=== PATIENT | male | born 1950 ===

== ENCOUNTER 2024-08-16 18:09 | Inpatient (IN) | payer MEDICARE, SELFPAY ==
[2024-08-16] VITALS (16 sets, daily range): BP systolic 107–142; BP diastolic 68–97; BMI 28.2
[2024-08-16 15:14] LABS: % Basophils 0.4 % (0-2); % Eosinophils 0.7 % (0-6); % Immature Granulocytes 0.4 % (0-0.5); % Lymphocytes 15.8 % (20.5-51.1); % Monocytes 7.2 % (1.7-9.3); % Neutrophils 75.5 % (42.2-75.2); Absolute Lymphocytes 0.9 10^3/uL (1.2-3.4); Absolute Monocytes 0.4 10^3/uL (0.1-0.6); Absolute Neutrophils 4.2 10^3/uL (1.4-6.5); Hematocrit 37.6 % (37.0-47.0); Mean Corp Hgb Conc. 34.6 g/dL (33.0-37.0); Mean Corpuscular Hgb 30.2 pg (27.0-31.0); Mean Corpuscular Volume 87.4 fL (81.0-99.0); Mean Platelet Volume 11.3 fL (7.4-10.4); Nucleated Red Blood Cells % 0 %; Platelet Count 215 10^3/uL (130-400); Red Cell Dist. Width 12.4 % (11.5-14.5); White Blood Cell Count 5.5 10^3/uL (4.8-10.8)
--- NOTE | 2024-08-16 15:26 | EDRN ---
Pt tore off ID band and left triage room for room #37 w/ 2 RNs and 2 security guards.
[2024-08-16 15:30] LABS: ALT (SGPT) 19 U/L (0-35); AST (SGOT) 25 U/L (14-36); Albumin 3.9 g/dl (3.5-5.0); Alkaline Phosphatase 73 U/L (38-126); Blood Urea Nitrogen 18 mg/dl (7-17); Calcium 9.2 mg/dl (8.4-10.2); Carbon Dioxide 23 mmol/L (22-30); Chloride 101 mmol/L (98-107); Glucose 139 mg/dl (70-99); Potassium 4.5 mmol/L (3.5-5.1); Sodium 134 mmol/L (135-145); Total Protein 6.7 g/dl (6.3-8.2); eGFR > 60.00
[2024-08-16 15:44] LABS: NT-proBNP 4550 pg/ml
--- NOTE | 2024-08-16 16:45 | ED.GENMED ---
History of Present Illness
<Amrita Ruiz NP - Last Filed: 08/16/24 22:37>
General
Chief Complaint: Breathing Problem
Source: patient
Exam Limitations: none
Time Seen by Provider: 08/16/24 15:48
Nursing documentation reviewed up to this point in time: agreed with
History of Present Illness
History of Present Illness:
Patient to ED with complaint of increasing CONNORS. Symptoms started a few days ago and continue to worsen. This AM he sat up in bed and noted left chest tightness. Tightness resolved in 1-2 minutes and has not returned. Brought to ED by spouse for
eval. No prior history of same.
Past History
<Amrita Ruiz NP - Last Filed: 08/16/24 22:37>
Past History
ED Past Medical History: CAD and Hypercholesterolemia
ED Past Surgical History: Cardiac (Bypass 1995)
Social History
Tobacco: Non-smoker
Review of Systems
<Amrita Ruiz NP - Last Filed: 08/16/24 22:37>
Review of Systems
Allergies reviewed?: Yes
All Other Systems: ROS reviewed and negative except as documented in HPI and ROS
Constitutional: Reports no symptoms
EENT: Reports no symptoms
Respiratory: Reports trouble breathing
Cardiac: Reports chest pain (Chest tightness this AM)
ABD/GI: Reports no symptoms
Musculoskeletal: Reports edema (+1 edema LLE, trace RLE)
Skin: Reports no symptoms
Neurological: Reports weakness
Psychiatric: Reports no symptoms
Phy Exam
<Amrita Ruiz NP - Last Filed: 08/16/24 22:37>
General Physical Exam
General Presentation: mild distress
General age: appears stated age
General Skin: warm and dry
General Habitus: normal
General Mental: alert
Cardiovascular Exam
Cardiovascular Exam: tachycardia
Pulmonary Exam
Pulmonary Exam: no respiratory distress and chest non tender
Breath Sounds: Crackles: left lower and right lower
Gastrointestinal Exam
Gastrointestinal Exam: non tender and soft
Musculoskeletal Exam
Musculoskeletal Exam: edema (+1LLE, trace RLE) and neuro vasc intact
Psychiatric Exam
Psychiatric Exam: normal mood/affect
Scores
<Amrita Ruiz NP - Last Filed: 08/16/24 22:37>
Heart Failure Risk
Heart Failure Risk Score: Yes
History of Stroke or TIA: No
History of intubation for respiratory distress: No
Heart rate on ED arrival >/= 110: Yes
SaO2 <90% on arrival on room air: No
HR >/=110 during 3min walk test (or too ill to perform test): Yes
ECG has acute ischemic changes: No
Urea >/=12mmol/L (BUN 33.6mg/dL): No
Serum CO2>/=35mmol/L: No
Troponin I or T elevated to FL Level (0.4mg/dL): Yes
NT-proBNP >/=5,000ng/L (5,000pg/ml): No
HF Risk Score: 4
Admission Status: HIGH RISK 26.1% Consider SNF treatment or admission to hospital
Course
<Amrita Ruiz [employer]OTOTYPE MODEL MAKER - Last Filed: 08/16/24 22:37>
Orders/Labs/Results
Orders:
Orders
08/16/24 14:42
Electrocardiogram (*1) Urgent
Reason for Study: Chest Pain
EKG- Treatment ONCE
08/16/24 14:48
CR Chest - 2 Views Urgent
Comment:
Reason For Exam: SOB
08/16/24 Dinner
Cholesterol Lowering
Cholesterol Lowering: Sodium, 2 Gram
08/16/24 15:06
Complete Blood Count/With Diff Urgent
Comprehensive Metabolic Panel Urgent
NT-proBNP Urgent
Troponin I Urgent
08/16/24 16:44
Furosemide [Lasix] 40 mg IV NOW STA
Nitroglycerin Ointment [Nitro-Bid] 1 inch TOPICAL NOW STA
08/16/24 17:26
Admit/Transfer Patient As Directed
Co-Sign Provider:
Level of Care: Inpatient admission
Assign to:: IVU
Physician / Group: fabiana
Diagnosis: heart failure
Reason for Hospitalization: chf,
Expected length of stay greater than two midnights?: Yes
ELOS- Estimated Length of Stay in days: 2
I certify the patient meets the requirements for IP care: Yes
08/16/24 17:28
ECG [Electrocardiogram (*1)] Urgent
Reason for Study: Abnormal EKG
PRN Pain Medication Management As Directed
May give lesser potent ordered pain med per pt: Yes
preference::
Protocol:: Medication orders for pain may be administered in a
manner that supports deferring to patient preference
when the pt is:
- Requesting an ordered lesser potent pain medication.
Least to most potent pain medications are defined
as: acetaminophen < NSAID < tramadol < opioids
(morphine, oxycodone, hydromorphone).
- Requesting a lesser dose of the same medication IF
ORDERED.
- Requesting a less intrusive route of administration
if both routes are prescribed by the provider (PO <
IV).
08/16/24 17:29
Code Status As Directed
Resuscitation Status: Full Code
08/16/24 18:00
Amiodarone [Cordarone] 900 mg DEXTROSE 5% PVC-free BAG [D5W PVC-free BAG] 500 ml IV PER PROTOCOL
Initial Dose in mg/min:: 1
Duration of initial dose (hours):: 6
Subsequent dose in mg/min:: 0.5
Duration of subsequent dose (hours):: 18
Maximum dose in mg/min:: 1
Hold and notify provider if:: Heart rate < 60 BPM or SBP < 90 mmHg or MAP < 60 mmHg
08/16/24 18:01
PRN Pain Medication Management As Directed
May give lesser potent ordered pain med per pt: Yes
preference::
Protocol:: Medication orders for pain may be administered in a
manner that supports deferring to patient preference
when the pt is:
- Requesting an ordered lesser potent pain medication.
Least to most potent pain medications are defined
as: acetaminophen < NSAID < tramadol < opioids
(morphine, oxycodone, hydromorphone).
- Requesting a lesser dose of the same medication IF
ORDERED.
- Requesting a less intrusive route of administration
if both routes are prescribed by the provider (PO <
IV).
08/16/24 19:02
Echo 2D MMode Color/Doppler Routine
Reason for Study: chf
CARDIOLOGY CONSULT Routine
Consulting Provider: Horacio Monroy
Was physician already notified: Yes
Activity As Directed
Activity Level: As Tolerated
I/O [Intake/ Output] As Directed
Frequency: q12h
Vital Signs As Directed
Frequency: Per unit guidelines
Weight As Directed
Frequency: Daily
DX Deep Vein Thrombosis Video Routine
08/16/24 20:00
Heparin 5,000 units SC Q12
08/16/24 20:11
Troponin I Q6H
08/17/24 01:02
Troponin I Q6H
08/17/24 06:00
Complete Blood Count/With Diff IN AM
Comprehensive Metabolic Panel IN AM
08/17/24 07:02
Troponin I Q6H
08/17/24 08:00
Aspirin Low Dose EC [Aspir Low (Enteric Coated)] 40.5 mg PO DAILY
Atorvastatin [Lipitor] 40 mg PO DAILY
Clopidogrel Bisulfate [Plavix] 75 mg PO DAILY
Furosemide [Lasix] 40 mg IV DAILY
08/17/24 13:02
Troponin I Q6H
08/18/24 11:00
DC Protocol for Telemetry ONCE
Abnormal Lab Results
08/16/24
15:06
MPV 11.3 H fL
(7.4-10.4)
Absolute Lymphs (auto) 0.9 L 10^3/uL
(1.2-3.4)
Neutrophils % 75.5 H %
(42.2-75.2)
Lymphocytes % 15.8 L %
(20.5-51.1)
Sodium 134 L mmol/L
(135-145)
BUN 18 H mg/dl
(7-17)
Glucose 139 H mg/dl
(70-99)
Troponin I 0.170 H* ng/ml
08/16/24 15:06
08/16/24 15:06
Vital Signs
Initial and Last Documented VS:
Initial Vital Signs
Temp Pulse Resp BP Pulse Ox
98.2 F 121 20 127/81 99
08/16/24 14:44 08/16/24 14:44 08/16/24 14:44 08/16/24 14:44 08/16/24 14:44
Last Documented Vital Signs
Temp Pulse Resp BP Pulse Ox
98.8 F 99 20 107/74 100
08/16/24 20:43 08/16/24 22:28 08/16/24 20:43 08/16/24 22:28 08/16/24 20:43
Javilt;Humza Sarmiento DO - Last Filed: 08/16/24 20:16>
Orders/Labs/Results
Orders:
Orders
08/16/24 14:42
Electrocardiogram (*1) Urgent
Reason for Study: Chest Pain
EKG- Treatment ONCE
08/16/24 14:48
CR Chest - 2 Views Urgent
Comment:
Reason For Exam: SOB
08/16/24 Dinner
Cholesterol Lowering
Cholesterol Lowering: Sodium, 2 Gram
08/16/24 15:06
Complete Blood Count/With Diff Urgent
Comprehensive Metabolic Panel Urgent
NT-proBNP Urgent
Troponin I Urgent
08/16/24 16:44
Furosemide [Lasix] 40 mg IV NOW STA
Nitroglycerin Ointment [Nitro-Bid] 1 inch TOPICAL NOW STA
08/16/24 17:26
Admit/Transfer Patient As Directed
Co-Sign Provider:
Level of Care: Inpatient admission
Assign to:: IVU
Physician / Group: fabiana
Diagnosis: heart failure
Reason for Hospitalization: chf,
Expected length of stay greater than two midnights?: Yes
ELOS- Estimated Length of Stay in days: 2
I certify the patient meets the requirements for IP care: Yes
08/16/24 17:28
ECG [Electrocardiogram (*1)] Urgent
Reason for Study: Abnormal EKG
PRN Pain Medication Management As Directed
May give lesser potent ordered pain med per pt: Yes
preference::
Protocol:: Medication orders for pain may be administered in a
manner that supports deferring to patient preference
when the pt is:
- Requesting an ordered lesser potent pain medication.
Least to most potent pain medications are defined
as: acetaminophen < NSAID < tramadol < opioids
(morphine, oxycodone, hydromorphone).
- Requesting a lesser dose of the same medication IF
ORDERED.
- Requesting a less intrusive route of administration
if both routes are prescribed by the provider (PO <
IV).
08/16/24 17:29
Code Status As Directed
Resuscitation Status: Full Code
08/16/24 18:00
Amiodarone [Cordarone] 900 mg DEXTROSE 5% PVC-free BAG [D5W PVC-free BAG] 500 ml IV PER PROTOCOL
Initial Dose in mg/min:: 1
Duration of initial dose (hours):: 6
Subsequent dose in mg/min:: 0.5
Duration of subsequent dose (hours):: 18
Maximum dose in mg/min:: 1
Hold and notify provider if:: Heart rate < 60 BPM or SBP < 90 mmHg or MAP < 60 mmHg
08/16/24 18:01
PRN Pain Medication Management As Directed
May give lesser potent ordered pain med per pt: Yes
preference::
Protocol:: Medication orders for pain may be administered in a
manner that supports deferring to patient preference
when the pt is:
- Requesting an ordered lesser potent pain medication.
Least to most potent pain medications are defined
as: acetaminophen < NSAID < tramadol < opioids
(morphine, oxycodone, hydromorphone).
- Requesting a lesser dose of the same medication IF
ORDERED.
- Requesting a less intrusive route of administration
if both routes are prescribed by the provider (PO <
IV).
08/16/24 19:02
Echo 2D MMode Color/Doppler Routine
Reason for Study: chf
CARDIOLOGY CONSULT Routine
Consulting Provider: Horacio Monroy
Was physician already notified: Yes
Activity As Directed
Activity Level: As Tolerated
I/O [Intake/ Output] As Directed
Frequency: q12h
Vital Signs As Directed
Frequency: Per unit guidelines
Weight As Directed
Frequency: Daily
DX Deep Vein Thrombosis Video Routine
08/16/24 20:00
Heparin 5,000 units SC Q12
08/16/24 20:11
Troponin I Q6H
08/17/24 01:02
Troponin I Q6H
08/17/24 06:00
Complete Blood Count/With Diff IN AM
Comprehensive Metabolic Panel IN AM
08/17/24 07:02
Troponin I Q6H
08/17/24 08:00
Aspirin Low Dose EC [Aspir Low (Enteric Coated)] 40.5 mg PO DAILY
Atorvastatin [Lipitor] 40 mg PO DAILY
Clopidogrel Bisulfate [Plavix] 75 mg PO DAILY
Furosemide [Lasix] 40 mg IV DAILY
08/17/24 13:02
Troponin I Q6H
08/18/24 11:00
DC Protocol for Telemetry ONCE
Abnormal Lab Results
08/16/24
15:06
MPV 11.3 H fL
(7.4-10.4)
Absolute Lymphs (auto) 0.9 L 10^3/uL
(1.2-3.4)
Neutrophils % 75.5 H %
(42.2-75.2)
Lymphocytes % 15.8 L %
(20.5-51.1)
Sodium 134 L mmol/L
(135-145)
BUN 18 H mg/dl
(7-17)
Glucose 139 H mg/dl
(70-99)
Troponin I 0.170 H* ng/ml
08/16/24 15:06
08/16/24 15:06
Vital Signs
Initial and Last Documented VS:
Initial Vital Signs
Temp Pulse Resp BP Pulse Ox
98.2 F 121 20 127/81 99
08/16/24 14:44 08/16/24 14:44 08/16/24 14:44 08/16/24 14:44 08/16/24 14:44
Last Documented Vital Signs
Temp Pulse Resp BP Pulse Ox
98.8 F 99 20 107/74 100
08/16/24 20:43 08/16/24 22:28 08/16/24 20:43 08/16/24 22:28 08/16/24 20:43
<Amrita Ruiz [employer]OTOTYPE MODEL MAKER - Last Filed: 08/16/24 22:37>
*Critical Care Note
Total Time (30-74mins, 75-104mins- exclusive of procedures): Not Applicable
<Amrita Ruiz NP - Last Filed: 08/16/24 22:37>
Update Note
Update Note:
Patient to ED with worsening CONNORS. Had an episode of chest tightness this AM. PUlse ox 96% RA. Labs reviewed. BNP 4500, trop 0.17. CXR report of severe bilateral pulmonary edema. Given 40mgm IV lasix, Nitrodur 1' applied. WIll admit to
hospitalist service. Case discussed iwth dr. sarmiento who agrees with findings and plan.
ED Attending Note
<Amrita Ruiz NP - Last Filed: 08/16/24 22:37>
-
Portions of this chart may have been created with voice recognition software.� Occasional wrong word or��sound alike� substitutions may have occurred due to the inherent limitations of voice recognition software.
<Humza Sarmiento, DO - Last Filed: 08/16/24 20:16>
ED Attending Note
Patient seen and examined by attending physician: Yes
I performed the substantive portion of visit, reviewed & personally made and approve the management plan that is documented in note by myself or ELAINE.: Yes
ED Attending Note:
I agree with Amrita's note
74-year-old male presents with increasing shortness of breath over the past several days. No fever. Patient complaining of some heaviness in his chest. Patient does not monitor his weight on a regular basis. He has noted that he gets much more
short of breath with exertion. Patient does have history of bypass surgery. He does not recall being told he ever had congestive heart failure.
General: Awake, Alert, Oriented X3. Mild increased work of breathing
Vitals: unremarkable
Head: Atraumatic
Eyes: Pupils equal, EOMI
Throat: Airway intact, no exudates
Neck: Trachea midline
Lungs: Crackles bilateral bases
Heart: Regular rate, no murmurs
Abd: Soft, Nontender, No pulsatile mass
Neuro: Nonfocal
Skin: Warm, dry, no rash
Extremities: pulses equal b/l, trace edema
EKG shows sinus tachycardia left lateral branch. There is no EKG to compare to.
Labs show elevated BNP and elevated troponin at 0.17
Discussed with Amrita. Plan is to initiate IV diuretic with furosemide. Nitropaste to reduce preload. Patient is not having chest pain at this time. Cardiology consult
Discharge Plan
Departure
Patient Disposition: Admit
Date of Disposition: 08/16/24
Time of Disposition: 16:53
Presentation/result/management discussed w/ accepting MD/DO: Hospitalist
Patient with high blood pressure during this ER visit?: Yes
Condition: Fair
Covid-19: Not Applicable
Discharge Problem:
Pulmonary edema
Interventions
Interventions:
*Risk Screen - Suicide Last Done: 08/16/24 17:23
*General Assessment Last Done: 08/16/24 14:44
*Neglect/Abuse Screening Last Done: 08/16/24 17:23
*ED- Fall Risk Assessment Last Done: 08/16/24 20:47
*ED COVID-19 Vaccine History Last Done: 08/16/24 20:52
*Nursing Disposition Last Done: 08/16/24 20:47
ED- Cardiac Assessment Last Done: 08/16/24 17:23
ED- Pulmonary Assessment Last Done: 08/16/24 17:23
Discharge Date and Time
Discharge Date/Time: 08/16/24 20:48
[2024-08-16] MEDS: LASIX 40 MG IV (16:49)
[2024-08-16] MEDS: NITRO-BID 1 INCH TOPICAL (16:51)
--- NOTE | 2024-08-16 17:36 | HPS.HSE ---
Family Physician
-
Family Physician: Craig Gambino
Chief Complaint
-
shortness of breath
History of Present Illness
74-year-old male past medical history CAD status post CABG, hypercholesteremia presenting with shortness of breath on exertion and with breathing. Symptoms started a few days ago continue to worsen. He has been having some chest discomfort over
the past 3 days also with exertion. He denies any chest discomfort currently. He has increased lower extreme edema. Denies weight gain. He has some cough without fever.
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
He denies smoking. He drinks alcohol occasionally. Denies drugs.
Multiple family members in his family including brother and father with heart attacks.
Medical History
Past Medical History
Past Medical History: Reports Other (CAD)
Past Surgical History: Reports Other (CABG )
Social History
Tobacco: Non-smoker
Alcohol: Occasional
Drug: None
Family History
Family History: Not pertinent
Allergies / Home Medications
Allergies reflects when Allergies were last updated in [facility].
Home Medications with original date entered in [facility]
Allergy/Medication List:
Allergies
Allergy/AdvReac Type Severity Reaction Status Date / Time
No Known Allergies Allergy Unverified 08/16/24 14:44
Home Medications
aspirin 81 mg tablet,delayed release 40.5 mg PO DAILY 08/16/24
atorvastatin 40 mg tablet (Lipitor) 40 mg PO DAILY 08/16/24
clopidogrel 75 mg tablet (Plavix) 75 mg PO DAILY 08/16/24
Review of Systems
-
History Source: Patient
A 12 point ROS was completed and negative except as noted: Yes
Constitutional: Reports No Symptoms
EENT: Reports No Symptoms
Respiratory: Reports See HPI
Cardiac: Reports See HPI
Abdomen/GI: Reports No Symptoms
: Reports No Symptoms
Musculoskeletal: Reports No Symptoms
Skin: Reports No Symptoms
Neurological: Reports No Symptoms
Endocrine: Reports No Symptoms
Hematologic/Lymphatic: Reports No Symptoms
Psych: Reports No Symptoms
Physical Exam
Vital Signs
Vital Signs
Temp Pulse Resp BP Pulse Ox
98.2 F 110 24 123/87 99
08/16/24 14:44 08/16/24 17:15 08/16/24 17:15 08/16/24 17:00 08/16/24 14:44
Physical Exam
General: Well Developed, Well Nourished and No Apparent Distress
HEENT: NormoCephalic, Moist mucous membranes and Atraumatic
Respiratory: Clear
Cardiac: S1/S2 and Regular Rhythm; No Murmur or Rub
GI: Soft, Non Tender, Non Distended and Normal Bowel Sounds; No Organomegaly
Rectal: Deferred by Provider
Musculoskeletal: No Clubbing, No Cyanosis and No Edema
Skin: No Rash
Neuro: Nonfocal/grossly intact
Laboratory Results
-
08/16/24 15:06
08/16/24 15:06
Laboratory Results
Total Bilirubin 1.0 mg/dl (0.2-1.3) 08/16/24 15:06
AST 25 U/L (14-36) 08/16/24 15:06
ALT 19 U/L (0-35) 08/16/24 15:06
Alkaline Phosphatase 73 U/L (38-126) 08/16/24 15:06
Troponin I 0.170 ng/ml H* 08/16/24 15:06
Data Reviewed
-
Lab Data: Labs Reviewed by me
Old Records: Reviewed
Impression/Plan
-
IMPRESSION:
PLAN:
# Acute CHF exacerbation
- Chest x-ray shows severe acute cardiogenic pulm edema, small bilateral pleural effusions, 7.1 cm radiodensity posterior to the superior segment to the right lower lobe, possibly loculated pleural effusion versus pleural-based mass
- Cardiac BNP of 4500
- Check I's and O's, daily weights
- 40 IV Lasix daily
-Check echo
- Cardiology consulted
# Nonischemic myocardial injury versus NSTEMI
# History of CAD status post CABG
- EKG shows sinus tachycardia versus atrial tachycardia with heart rate of 122, left bundle branch block
- Trend troponins
-Continue aspirin, Plavix and statin
-Consider heparin drip if troponin is rising or chest pain returns
- Cardiology consulted
# Sinus tachycardia versus atrial tachycardia
- Repeat EKG pending, start Lopressor 25 twice daily if still tachycardic
Full code
DVT prophylaxis�heparin
Regular diet
--- NOTE | 2024-08-16 17:48 | CON.CAR ---
Consultation
Consultation Request
Date/Time Consultation Requested: 08/16/2024 at 1750
Date/Time Consultation Performed: 08/16/2024 at 1800
Requesting Provider: Dr Murphy
Performing Provider: Horacio Monroy
Reason for Consultation: Suspected atrial flutter with CHF
Medical History
-
History of Present Illness:
73-year-old man followed by Dr. Rd Lawson at [facility], history of CAD, CABG in 1997, prior PCI, saphenous vein graft intervention with stent x 3 in 2016, hypertension, hyperlipidemia who presented to [facility] today with
shortness of breath roughly 3 to her days and duration, with some chest discomfort in that timeframe and lower extremity edema. Details of PCI, detailed echo report not currently available.
Past Medical History
Past Medical History: Arrhythmias (History of syncope), CAD (CABG 1997, history of PCI most recently reported 3 stents to SVG in 2016) and Valvular Disease (Mild aortic stenosis, mean gradient 17 mmHg in 2021)
Past Surgical History: Cardiac (CABG x 3 1997 at [facility],)
Social History
Tobacco: Non-Smoker
Alcohol: Occasional
Drug: None
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
Living: Alone
Employment: Retired
Family History
Family History: Early CAD (Multiple family members) and CAD
Allergies / Home Medications
Allergy/AdvReac Type Severity Reaction Status Date / Time
No Known Allergies Allergy Unverified 08/16/24 14:44
�Medication �Instructions �Recorded �Confirmed �Type
aspirin 81 mg tablet,delayed 40.5 mg PO DAILY 08/16/24 08/16/24 History
release
atorvastatin 40 mg tablet (Lipitor) 40 mg PO DAILY 08/16/24 08/16/24 History
clopidogrel 75 mg tablet (Plavix) 75 mg PO DAILY 08/16/24 08/16/24 History
Review of Systems
-
All other systems: Negative unless noted
Physical Exam
Vital Signs
Temp Pulse Resp BP Pulse Ox
36.8 C 110 24 123/87 99
08/16/24 14:44 08/16/24 17:15 08/16/24 17:15 08/16/24 17:00 08/16/24 14:44
Lab Results
08/16/24 15:06
08/16/24 15:06
Troponin I 0.170 ng/ml H* 08/16/24 15:06
Aob-L-Ubkikahteqa Pept 4550 pg/ml 08/16/24 15:06
Physical Exam
General: No Apparent Distress (Reported to be uncomfortable earlier, states he is feeling better now)
HEENT: Normocephalic
Respiratory: Clear
Cardiac: Murmur (Soft aortic murmur JVD okay, no obvious carotids, exam somewhat limited)
Musculoskeletal: No Edema
Skin: Warm and Dry
Neuro: AO x 3
Psych: Calm
Impression / Plan
-
Impression:
Acute/subacute heart failure, EF unknown
CAD history of CABG 1997
History of PCI 2000, with PCI to saphenous vein graft in 2015
Hypercholesterolemia
Left bundle branch block, not present in 2023
Plan:
He presents with acute heart failure, onset roughly 3 days ago, with left bundle branch block and what was likely sinus tachycardia, though atrial tachycardia or atrial flutter not excluded. As heart rate dropped to low 100s, rhythm is clearly
sinus tachycardia.
Initially he was in significant distress, now feels better.
We will trend troponin, repeat EKG, check echo and thereafter optimize GDMT
Continue IV Lasix.
Suspect his troponin elevation is nonischemic myocardial injury from heart failure. However based on troponin, clinical course we can determine if intervention is required.
Data Reviewed
-
EKG: Tracing Personally Visualized and interpreted (ECG suspected atrial flutter with 2 1 conduction)
Radiology: Image Personally Visualized and interpreted (CHF)
Labs: Labs Reviewed by me (Hemoglobin 13, white count 5.5, troponin 0.170, proBNP 4550)
Old Records: Reviewed
[2024-08-16] MEDS: CORDARONE 518 MG IV (18:31)
[2024-08-16] MEDS: HEPARIN 5000 UNITS SC (20:09)
[2024-08-16 20:45] LABS: Troponin I 0.204 ng/ml
[2024-08-16] MEDS: LASIX 60 MG IV (22:28)
[2024-08-17] VITALS (8 sets, daily range): BP systolic 93–122; BP diastolic 65–72; BMI 27.9
--- NOTE | 2024-08-17 00:22 | PTCARENOTE ---
Rec'd pt. from ED into room 2256 AAOX3, VSS, ST with BBC (rate low 100's-110's) on the monitor. Pt. denied any CP, still having some SOB especially with activity but states it has overall improved. Crackles present bilateral bases (right > left),
rec'd on 5L O2 with pulse ox 99-100%, titrated down to 3L thus far with pulse ox maintaining high 90's. Clarified with Dr. AURORA graham gtt to remain off at this point (order discontinued) - HR maintaining 90's-low 100's at rest, sinus rhythm.
Lasix 60 mg IV x 1 given, pt. urinating without difficulty into urinal. Plan of care discussed with pt., understanding verbalized. CHF booklet given. Pt. currently resting quietly.
[2024-08-17 03:13] LABS: % Basophils 0.2 % (0-2); % Eosinophils 0.2 % (0-6); % Immature Granulocytes 0.2 % (0-0.5); % Lymphocytes 16.9 % (20.5-51.1); % Monocytes 6.8 % (1.7-9.3); % Neutrophils 75.7 % (42.2-75.2); Absolute Lymphocytes 0.9 10^3/uL (1.2-3.4); Absolute Monocytes 0.4 10^3/uL (0.1-0.6); Absolute Neutrophils 4.2 10^3/uL (1.4-6.5); Hematocrit 34.5 % (39.0-52.0); Hemoglobin 11.9 g/dL (13.0-18.0); Mean Corp Hgb Conc. 34.5 g/dL (33.0-37.0); Mean Corpuscular Hgb 30.3 pg (27.0-31.0); Mean Corpuscular Volume 87.8 fL (80.0-94.0); Mean Platelet Volume 11.8 fL (7.4-10.4); Nucleated Red Blood Cells % 0 % (-); Platelet Count 186 10^3/uL (130-400); Red Blood Cell Count 3.93 10^6/uL (4.70-6.10); Red Cell Dist. Width 12.2 % (11.5-14.5); White Blood Cell Count 5.6 10^3/uL (4.8-10.8)
[2024-08-17 03:36] LABS: ALT (SGPT) 17 U/L (0-50); AST (SGOT) 23 U/L (17-59); Albumin 3.5 g/dl (3.5-5.0); Alkaline Phosphatase 73 U/L (38-126); Blood Urea Nitrogen 18 mg/dl (9-20); Calcium 8.7 mg/dl (8.4-10.2); Carbon Dioxide 25 mmol/L (22-30); Chloride 98 mmol/L (98-107); Estimated Creatinine Clearance 69 ml/min; Glucose 115 mg/dl (70-99); Potassium 4.4 mmol/L (3.5-5.1); Sodium 134 mmol/L (135-145); Total Bilirubin 1.2 mg/dl (0.2-1.3); Total Protein 6.1 g/dl (6.3-8.2); eGFR > 60.00
[2024-08-17 03:50] LABS: Troponin I 0.269 ng/ml
[2024-08-17] MEDS: LASIX 40 MG IV (07:28)
[2024-08-17] MEDS: HEPARIN 5000 UNITS SC ×2 (07:28→20:22)
[2024-08-17] MEDS: ASPIR LOW (ENTERIC COATED) 40.5 MG PO (07:29)
[2024-08-17] MEDS: PLAVIX 75 MG PO (07:29)
[2024-08-17] MEDS: LIPITOR 40 MG PO (07:29)
--- NOTE | 2024-08-17 08:25 | W.PN.CARDCBS ---
Addendum entered and electronically signed by Soham Ortiz MD 08/17/24 12:56:
I saw and examined the patient.
The Mechanical Drawing Teacher's note was reviewed and I agree with the note.
Comment:
GEN: No distress, awake, Ox3
HEENT: supple, anicteric, mmm
LUNGS: bilat rhonchi
CV: Reg, tachy, S1/S2, 1/6 syst LSB, S3+
ABD: soft, BS+, NT/ND
EXT: +1 edema
NEURO: Gross non-focal
SKIN: No rash
Plan:
He presents with acute heart failure with unknown LVEF. Will continue to treat him medically for now. Increase IV Lasix to 40 twice daily. Await echocardiogram today.
Add Toprol 25 mg daily and likely titrate to twice daily.
If LVEF is depressed would consider cardiac catheterization. Cardiac troponin is at 0.25.
Rhythm is difficult to assess although appears to be sinus rhythm versus atrial tachycardia. Will repeat EKG today after adding Toprol.
If this is SVT we would need to consider cardioversion and full anticoagulation.
Continue medical therapy for CAD. Continue aspirin, Plavix, Toprol, and atorvastatin. Check lipids.
Original Note:
Today's Communication / Plan
-
continue IV lasix, consider increasing dose
add toprol
check CVE
trend trops
echo today
wean supp O2
Impression / Plan
-
Primary Convertible Power Shovel Operator: Dr. Rd Lawson
Impression:
Presentation with SOB
Acute/subacute heart failure, EF unknown
Suspected atrial tachycardia
Elevated troponin
CAD history of CABG 1997
History of PCI 2000, with PCI x3 SVG to diag 07/2016, PCI SVG to diag 2021
mild
Hypercholesterolemia
HTN
Left bundle branch block, not present in 2023
Left carotid artery stenosis
ECHO 03/18/22: EF 55%, mild mid to apical anteroseptal hypokinesis, mild MAC, mild to moderate AAS with mild to moderate AR with peak/mean gradients 30/17 mmHg, mild TR, PAP 17 mmHg
Plan:
-Patient presented with shortness of breath and found to be in acute heart failure. Chest x-ray with evidence of severe cardiogenic edema and proBNP 4550. He is being diuresed with IV Lasix, was not on diuretic prior to admission, consider
increasing dose to 40mg IV BID. Reports some improvement overnight with good urine output. Creatinine stable at 1.
-Check echo, last from 2021 as above
-CHF education
-wean supp O2 as able
-there is concern for paroxysmal atrial tachycardia on review of tele since admission. add toprol 25mg daily (which he was on as of last office visit with Dr. Lawson 02/16/24). of note, he does have history of orthostasis.
-trop rising, up to 0.269. trend to peak. EKG also with LBBB, which appears new compared to office EKG from 2023. pending results of echo, may need to consider for inpatient ischemic evaluation. appears last cath was in 2021 resulting in SVG to diag
PCI.
-he is chronically on 1/2 dose baby aspirin (due to prior ecchymoses) and plavix. hgb stable. will increase asa dose to 81mg daily
-check CVE. continue lipitor 40mg QPM
-records from Dr. Lawson reviewed including office note from [facility] cardiology 2015, office note Dr. Lawson 02/16/24, EKG 02/16/24, echo 03/18/2022.
Progress Note - Convertible Power Shovel Operator
Subjective
Date of Service: August 17, 2024
denies CP. reports breathing improving. states good urination overnight
Objective
Labs:
08/17/24 02:35
08/17/24 02:35
Labs
Hgb 11.9 g/dL (13.0-18.0) L 08/17/24 02:35
Hct 34.5 % (39.0-52.0) L 08/17/24 02:35
Plt Count 186 10^3/uL (130-400) 08/17/24 02:35
Sodium 134 mmol/L (135-145) L 08/17/24 02:35
Potassium 4.4 mmol/L (3.5-5.1) 08/17/24 02:35
BUN 18 mg/dl (9-20) 08/17/24 02:35
Creatinine 1.0 mg/dL (0.7-1.3) 08/17/24 02:35
Glucose 115 mg/dl (70-99) H 08/17/24 02:35
Troponins
08/16/24 08/16/24 08/17/24
15:06 20:11 02:35
Troponin I 0.170 H* 0.204 H* 0.269 H* D
Vital Signs and I&O:
Vital Signs
Temp Pulse Resp BP Pulse Ox
97.7 F 109 18 122/69 100
08/17/24 07:18 08/17/24 07:37 08/17/24 02:27 08/17/24 07:37 08/17/24 07:18
Vital Signs
Temp Pulse Resp BP Pulse Ox
97.7 F 109 18 122/69 100
08/17/24 07:18 08/17/24 07:37 08/17/24 02:27 08/17/24 07:37 08/17/24 07:18
Intake & Output
08/15/24 08/16/24 08/17/24 08/18/24
07:59 07:59 07:59 07:59
Intake Total 480 / 480
Output Total 2300 / 2300
Balance -1820 / -1820
Physical Exam
Physical Exam
GEN: No distress, awake, alert, oriented x3. on supp O2. sitting in chair
HEENT: supple, anicteric, mmm, eomi
LUNGS: Crackles B/L, no wheezes
CV: Irreg and tachy, S1/S2, 1/6 syst LSB
ABD: soft, BS+, NT/ND
EXT: No cyanosis, clubbing. trace edema of B/L LE
NEURO: Gross non-focal
SKIN: Warm, pink, dry. No rash
[2024-08-17] MEDS: TOPROL XL 25 MG PO (09:26)
[2024-08-17 09:34] LABS: Troponin I 0.255 ng/ml
--- NOTE | 2024-08-17 11:07 | CARDSERVLU ---
Echocardiogram with [facility] completed after protocol screening completed. Allergies verified.
Patent IV site: __existing 20 RFA___
IV site flushed with 0.9% NaCl pre and post administration.
Diluted bolus method utilized to enhance visualization of ventricular grubbs.
Total volume given: _3.0___ mL
Patient tolerated all procedures well without complications.
--- NOTE | 2024-08-17 12:42 | CM ---
spoke to pt in room, he is prev indep, lives with his sister and JOHN in a 2 story home with 3 steps to enter. he denies any dme's or dc planning needs. plan is for dc to home when medically stable.
--- NOTE | 2024-08-17 13:59 | W.PN.UPDATE ---
Update Note
Progress Note Update
Discussed with patient and at bedside results of echocardiogram, showing new cardiomyopathy with EF 15% compared to prior from 2021 with EF of 50%. We discussed we will continue diuresis. Patient feels as though he is able to lay flat. Based
on this we will plan for left and right heart cath in a.m. and can determine further recommendations based on results of cath. N.p.o. after midnight. All questions answered.
--- NOTE | 2024-08-17 14:54 | W.PN.HOSP.TC ---
Today's Communication/Plan
-
IV diuresis per
Ischemic evaluation
Assessment / Plan
Assessment / Plan
Impression:
Presentation with shortness of breath and PND.
Acute CHF severely reduced EF.
Suspected atrial tachycardia.
Non-[place] troponin elevation.
Other conditions:
CAD with history of PCI 04/2021.
Mild aortic stenosis
Essential hypertension
Dyslipidemia.
Known LBBB since 2023.
PAD/left carotid artery stenosis.
Plan:
Acute CHF reduced EF.
Echocardiogram on 08/17 with now severely reduced EF at 15% and dilated left ventricle which is new from most recent echo 03/19 at that time EF 55%.
Plan is for ischemic evaluation left/right cardiac cath planned on 08/18.
Continue IV diuresis/Lasix 40 mg daily.
Added Toprol XL 25 mg daily.
Continue statin.
Further GDMT regimen to be determined upon evaluation.
CAD with prior PCI
Non-[place] troponin elevation
Continue Plavix and aspirin.
Continue statin
Initiated on Toprol
Anticipated Discharge: 24 - 48 hours
Subjective/Interval History
-
Date of Service: August 17, 2024
Objective Data
-
Labs:
Laboratory Results
08/17/24
02:35
WBC 5.6
Hgb 11.9 L
Hct 34.5 L
Plt Count 186
Sodium 134 L
Potassium 4.4
Chloride 98
Carbon Dioxide 25
BUN 18
Creatinine 1.0
Glucose 115 H
Calcium 8.7
Total Bilirubin 1.2
AST 23
ALT 17
Alkaline Phosphatase 73
Vital Signs:
Vital Signs
Temp Pulse Resp BP Pulse Ox
98.5 F 96 18 106/66 97
08/17/24 11:24 08/17/24 09:26 08/17/24 11:24 08/17/24 09:26 08/17/24 11:46
I&O
08/16/24 08/17/24 08/18/24
06:59 06:59 06:59
Intake Total 480 / 480
Output Total 2300 / 2300 450 / 450
Balance -1820 / -1820 -450 / -450
Physical Exam
-
General: Well Developed and No Apparent Distress
HEENT: Normocephalic, Atraumatic and Moist Mucous Membranes
Respiratory: Clear to Auscultation
Cardiac: Regular Rhythm and S1/S2; Negative Murmur, Rub or Gallop
GI: Soft, Nontender, Nondistended and Normal Bowel Sounds; Negative Organomegaly
Rectal: Deferred by Provider
Musculoskeletal: No Clubbing, No Cyanosis and No Edema
Skin: Negative Rash
Neuro: Nonfocal/Grossly Intact
[2024-08-18] VITALS (20 sets, daily range): BP systolic 88–111; BP diastolic 51–75; BMI 27.7
--- NOTE | 2024-08-18 04:38 | PTCARENOTE ---
No complaints of SOB or CP this shift, VSS, NSR-ST with BBC on the monitor. Voiding dark yellow urine (UO slowed down from previous night) - pt. also walked to bathroom twice and urinated in toilet without measuring; reminded that accurate
measurement of output is very important (has urinal). NPO for cath later his morning, pt. aware.
[2024-08-18 04:45] LABS: Mean Corp Hgb Conc. 34.2 g/dL (33.0-37.0); Mean Corpuscular Hgb 30.3 pg (27.0-31.0); Mean Corpuscular Volume 88.6 fL (80.0-94.0); Mean Platelet Volume 11.8 fL (7.4-10.4); Platelet Count 186 10^3/uL (130-400); Red Blood Cell Count 4.29 10^6/uL (4.70-6.10); Red Cell Dist. Width 12.3 % (11.5-14.5); White Blood Cell Count 5.2 10^3/uL (4.8-10.8)
[2024-08-18 05:13] LABS: Blood Urea Nitrogen 22 mg/dl (9-20); Calcium 9.1 mg/dl (8.4-10.2); Carbon Dioxide 27 mmol/L (22-30); Chloride 96 mmol/L (98-107); Estimated Creatinine Clearance 69 ml/min; Glucose 95 mg/dl (70-99); Magnesium 2.2 mg/dl (1.6-2.3); Potassium 4.1 mmol/L (3.5-5.1); Sodium 134 mmol/L (135-145); eGFR > 60.00
[2024-08-18] MEDS: LIPITOR 40 MG PO (08:40)
[2024-08-18] MEDS: PLAVIX 75 MG PO (08:40)
[2024-08-18] MEDS: LASIX 40 MG IV ×2 (08:40→17:25)
[2024-08-18] MEDS: TOPROL XL 25 MG PO (08:40)
[2024-08-18] MEDS: ASPIR LOW (ENTERIC COATED) 81 MG PO (08:40)
[2024-08-18] MEDS: HEPARIN 5000 UNITS SC ×2 (08:41→20:20)
--- NOTE | 2024-08-18 11:17 | CM ---
CM following for DC planning needs.
Met w/ patient at bedside. Reviewed role of CM.
Pt. resides w/ JOHN + sister in a private home. I offered VN @ DC; patient declines, states that his sister cares for him PRN.
Plan is for home, no needs.
Will cont. to follow.
--- NOTE | 2024-08-18 12:39 | PTCARENOTE ---
Assumed care at 0700. Patient comfortable at rest. SR HR 80-90's. Denies shortness of breath, crackled right base and diminished at the bases, POX 99% on room air. Using urinal voiding large amounts of yellow urine. NPO for cath today, meds given
with a small sip of water
--- NOTE | 2024-08-18 14:11 | W.PN.HOSP.TC ---
Today's Communication/Plan
-
Cardiac cath today
Assessment / Plan
Assessment / Plan
Impression:
Presentation with shortness of breath and PND.
Acute CHF severely reduced EF.
Suspected atrial tachycardia.
Non-[place] troponin elevation.
Other conditions:
CAD with history of PCI 04/2021.
Mild aortic stenosis
Essential hypertension
Dyslipidemia.
Known LBBB since 2023.
PAD/left carotid artery stenosis.
Plan:
Acute CHF reduced EF.
Echocardiogram on 08/17 with now severely reduced EF at 15% and dilated left ventricle which is new from most recent echo 03/19 at that time EF 55%.
Plan is for ischemic evaluation left/right cardiac cath planned on 08/18.
Continue IV diuresis/Lasix 40 mg daily.
Added Toprol XL 25 mg daily.
Continue statin.
Further GDMT regimen to be determined upon evaluation.
CAD with prior PCI
Non-DC troponin elevation
Continue Plavix and aspirin.
Continue statin
Initiated on Toprol
Anticipated Discharge: 24 - 48 hours
Subjective/Interval History
-
Date of Service: August 18, 2024
Objective Data
-
Labs:
Laboratory Results
08/18/24
04:12
WBC 5.2
Hgb 13.0
Hct 38.0 L
Plt Count 186
Sodium 134 L
Potassium 4.1
Chloride 96 L
Carbon Dioxide 27
BUN 22 H
Creatinine 1.0
Glucose 95
Calcium 9.1
Vital Signs:
Vital Signs
Temp Pulse Resp BP Pulse Ox
98.0 F 93 16 102/61 99
08/18/24 11:40 08/18/24 11:38 08/18/24 11:40 08/18/24 11:38 08/18/24 11:40
I&O
08/17/24 08/18/24 08/19/24
06:59 06:59 06:59
Intake Total 480 / 480
Output Total 2300 / 2300 600 / 600 1650 / 1650
Balance -1820 / -1820 -600 / -600 -1650 / -1650
Physical Exam
-
General: Well Developed and No Apparent Distress
HEENT: Normocephalic, Atraumatic and Moist Mucous Membranes
Respiratory: Clear to Auscultation
Cardiac: Regular Rhythm and S1/S2; Negative Murmur, Rub or Gallop
GI: Soft, Nontender, Nondistended and Normal Bowel Sounds; Negative Organomegaly
Rectal: Deferred by Provider
Musculoskeletal: No Clubbing, No Cyanosis and No Edema
Skin: Negative Rash
Neuro: Nonfocal/Grossly Intact
--- NOTE | 2024-08-18 15:40 | PTCARENOTE ---
Patient received from the laborer laboratory. Right femoral site CDI. NSR on telemetry. Denies pain or shortness of breath, call blum in reach
--- NOTE | 2024-08-18 16:17 | CM ---
Priced both Jardiance and Farxiga thru insurance, [employer]- [phone]; estimated cost of both medication is:
Pt. will be responsible for paying 467/ mo until annual deductible is met. Once deductible is met, pt. responsible for paying 25% of the total medication cost, which is approximately $117/ mo. Once patient meets $2,000 out of pocket, he will be
responsible for $0.
--- NOTE | 2024-08-18 16:38 | ITS.CL.CATH ---
Clip Wrapper - Catheterization
Cardiac Catheterization
Procedure Report:
LEFT AND RIGHT HEART CATHETERIZATION
Date of Procedure: August 18, 2024
Referring: Dr. Boom Ortiz
PROCEDURES:
1. Left heart catheterization, coronary angiogram.
2. Selective graft angiography.
3. Right heart catheterization.
4. Moderate sedation
INDICATION: New cardiomyopathy, LVEF of 15%
ACCESS: Right common femoral artery and vein, 6 [place] sheath, under ultrasound guidance
Ultrasound was utilized for vascular access. The radial artery was visualized under ultrasound, and the vessel was patent and pulsatile. An image was stored permanently in the patient's medical record. Under direct ultrasound guidance, a 6 [place]
sheath was inserted into the artery using a micropuncture kit through a modified Seldinger technique.
HEMODYNAMICS : (mmHg)
RA (m) : 6
RV (s/d,m) : 35/5, 6
PA (s/d, m) : 37/17, 25
PCWP (m) : 17
PA saturation: 96.1% on room air
AO saturation: 61.2% on room air
RA saturation: 60.9% on room air
Cardiac Output : 3.54 L/min by Dereck calculation
Cardiac Index : 1.69 L/min/m-2 by Dereck calculation
Systemic vascular resistance: 1492 dsc^(-5)
Pulmonary vascular resistance: 2.2 so skinner unit
AO (s/d) : 107/52
LV (s/d) : 112/12
LVEDP : 29
CORONARY FINDINGS
DOMINANCE: Right
LEFT MAIN: The left main artery is a medium caliber vessel giving rise to the left anterior descending artery and the left circumflex artery. There is minimal luminal irregularities.
LEFT ANTERIOR DESCENDING: The left anterior descending artery is a medium caliber vessel with 100% proximal total occlusion with the widely patent CONN graft.
CIRCUMFLEX: The left circumflex artery has 100% occlusion at the ostium with left to left collaterals and right to left collaterals.
RIGHT CORONARY ARTERY: The right coronary artery is a large-caliber, dominant vessel which gives rise to the right posterior descending artery with minimal luminal irregularities and collaterals from right to left.
GRAFT ANGIOGRAPHY:
1. CONN to LAD is widely patent.
2. Saphenous vein graft to diagonal branch is occluded.
SEDATION: 47 minutes of procedural sedation was utilized. An independent medical billing service was present to assist with and help manage the patient's level of consciousness and physiologic status.
RADIATION SUMMARY: Fluoro Time (min): 6.5, Dose (mGy): 247.59, DAP (Gy.cm2) : 19.5
Closure Device: 6 [place] Angio-Seal over the right common femoral arterial access with successful hemostasis. Manual pressure was held over the right common femoral venous access
CONCLUSIONS
1. Significant [place] coronary artery disease.
2. Occluded saphenous vein graft to diagonal branch.
3. Widely patent CONN graft to LAD.
4. Mildly elevated right and left-sided filling pressures with reduced cardiac output with mildly elevated systemic vascular resistance
RECOMMENDATIONS
1. Bedrest per protocol.
2. Optimization of goal-directed medical therapy for ischemic cardiomyopathy and management of invasive hemodynamics with IV diuresis.
3. Aggressive management of cardiovascular risk factor.
4. Reassessment of LVEF as an outpatient and consideration for ICD if LVEF continues to remain less than 35%.
5. Referral for outpatient cardiac rehab.
Anita Durán MD, FACC, [facility]
[2024-08-18] MEDS: COZAAR 25 MG PO (19:31)
--- NOTE | 2024-08-18 21:14 | PTCARENOTE ---
Received patient at change of shift. SR with a BBB on the monitor, HR in the 80s. R femoral and L radial dressings CDI, no evidence of hematoma. No complaints from pt at this time, call blum within reach.
[2024-08-19] VITALS (11 sets, daily range): BP systolic 80–120; BP diastolic 53–70; BMI 27.3
[2024-08-19 04:37] LABS: Hematocrit 34.1 % (39.0-52.0); Hemoglobin 11.8 g/dL (13.0-18.0); Mean Corp Hgb Conc. 34.6 g/dL (33.0-37.0); Mean Corpuscular Hgb 30.3 pg (27.0-31.0); Mean Corpuscular Volume 87.7 fL (80.0-94.0); Mean Platelet Volume 11.8 fL (7.4-10.4); Platelet Count 180 10^3/uL (130-400); Red Blood Cell Count 3.89 10^6/uL (4.70-6.10); Red Cell Dist. Width 12.1 % (11.5-14.5); White Blood Cell Count 5.3 10^3/uL (4.8-10.8)
[2024-08-19 04:57] LABS: Blood Urea Nitrogen 24 mg/dl (9-20); Calcium 8.5 mg/dl (8.4-10.2); Carbon Dioxide 28 mmol/L (22-30); Chloride 95 mmol/L (98-107); Estimated Creatinine Clearance 69 ml/min; Glucose 88 mg/dl (70-99); Potassium 3.5 mmol/L (3.5-5.1); Sodium 134 mmol/L (135-145); eGFR > 60.00
--- NOTE | 2024-08-19 07:46 | W.PN.CARDCBS ---
Addendum entered and electronically signed by Anita Durán MD 08/19/24 17:17:
I saw and examined the patient.
The Head Of Marketing Adometry's note was reviewed and I agree with the note.
Comment: Overall patient is doing better with his breathing being improved.
On exam patient is well-appearing, no acute distress, JVP of about 7 to 8 cm of water, no carotid bruit, regular rate, normal S1 and S2, no murmurs, rubs or gallops, lungs are clear to auscultation bilaterally, warm extremities without significant
edema. Right femoral access sites without evidence of hematoma or bruit with dressing in place which is clean, dry and intact.
Vital signs and lab work reviewed. Renal function is stable.
Recommendations:
1. Will switch his Lasix to 40 mg daily p.o. to maintain euvolemia.
2. Continued optimization of goal-directed medical therapy for severe ischemic cardiomyopathy. Metoprolol on hold in the setting of reduced cardiac output with initiation of Cozaar in the setting of mildly elevated SVR.
3. Will attempt to increase Cozaar if blood pressures allow plus or minus add Aldactone. Beta-roxanne prior to discharge.
4. We looked into the cost for SGLT2 inhibitors however it seems to be cost prohibitive. Can be assessed as an outpatient.
5. Start with discharge planning, and outpatient follow-up. Anticipate discharge in the next 24 to 48 hours.
Anita Durán MD, [facility], [facility]
Original Note:
Today's Communication / Plan
-
po lasix 40mg daily
continue cozaar
attempt to add low dose BB in AM pending BP trends
will arrange OP cardiac follow up with Dr. Lawson
Impression / Plan
-
Primary Medical Records Auditor: Dr. Rd Lawson
Impression:
Presentation with SOB
Acute HFrEF
Suspected atrial tachycardia
Elevated troponin
CAD
history of CABG 1997
history of PCI 2000, with PCI x3 SVG to diag 07/2016, PCI SVG to diag 2021
s/p cath 08/18 with occluded SVG to diag
mild
Hypercholesterolemia
HTN
Left bundle branch block, not present in 2023
Left carotid artery stenosis
ECHO 03/18/22: EF 55%, mild mid to apical anteroseptal hypokinesis, mild MAC, mild to moderate with mild to moderate AR with peak/mean gradients 30/17 mmHg, mild TR, PAP 17 mmHg
Echo 08/17/2024: EF 10 to 15%, global hypokinesis with regional wall motion abnormalities in mid to distal anterior wall, apex, apical inferior wall, septum, moderate LA dilation, mild to moderate MR, moderate to severe with mean gradient 11 mmHg
but may be underestimated due to severe LV dysfunction, mild to moderate AI, mild TR, PAP 48 mmHg
Plan:
-he presented with SOB and acute CHF.
-echo showed new reduction in EF to 10-15%
-peak trop 0.269 with history of CAD/CABG/PCI. underwent cath 08/18 with occluded SVG to diag and severe [place] vessel CAD. did not receive intervention.
-also noted to have LVEDP of 29 and CI 1.7. weight continues to trend down with diuresis and relatively hypotensive this AM. will transition to po lasix 40mg daily (was not on diuretic prior to admission). Cr stable at 1.
-CHF education
-in SR with chronic LBBB and occasional PVCs and several brief runs of atach. eventual low dose BB prior to DC.
-GDMT of CM and CHF as BP allows. of note, he does have history of orthostasis. continue cozaar.
-continue asa, plavix, lipitor
-likely for DC in AM
-will arrange for OP cardiac follow up with Dr. Lawson
Progress Note - Medical Records Auditor
Subjective
Date of Service: August 19, 2024
no CP, SOB.
Objective
Labs:
08/19/24 04:09
08/19/24 04:09
Labs
Hgb 11.8 g/dL (13.0-18.0) L 08/19/24 04:09
Hct 34.1 % (39.0-52.0) L 08/19/24 04:09
Plt Count 180 10^3/uL (130-400) 08/19/24 04:09
Sodium 134 mmol/L (135-145) L 08/19/24 04:09
Potassium 3.5 mmol/L (3.5-5.1) 08/19/24 04:09
BUN 24 mg/dl (9-20) H 08/19/24 04:09
Creatinine 1.0 mg/dL (0.7-1.3) 08/19/24 04:09
Glucose 88 mg/dl (70-99) 08/19/24 04:09
Troponins
08/16/24 08/16/24 08/17/24
15:06 20:11 02:35
Troponin I 0.170 H* 0.204 H* 0.269 H* D
08/17/24 08/17/24
09:00 22:15
Troponin I 0.255 H* Cancelled
Vital Signs and I&O:
Vital Signs
Temp Pulse Resp BP Pulse Ox
98.6 F 91 20 98/56 98
08/19/24 07:37 08/19/24 04:00 08/19/24 07:37 08/19/24 03:53 08/19/24 07:37
Vital Signs
Temp Pulse Resp BP Pulse Ox
98.6 F 91 20 98/56 98
08/19/24 07:37 08/19/24 04:00 08/19/24 07:37 08/19/24 03:53 08/19/24 07:37
Intake & Output
08/16/24 08/17/24 08/18/24 08/19/24
07:59 07:59 07:59 07:59
Intake Total 480 / 480 980 / 980
Output Total 2300 / 2300 600 / 600 2024 / 2024
Balance -1820 / -1820 -600 / -600 -5 / -1044
Physical Exam
Physical Exam
GEN: No distress, awake, alert, oriented x3. flat affect
HEENT: supple, anicteric, mmm, eomi
LUNGS: CTA B/L, no wheezes/rales
CV: Reg, S1/S2, 1/6 syst LSB
ABD: soft, BS+, NT/ND
EXT: No cyanosis, clubbing, edema
NEURO: Gross non-focal
SKIN: Warm, pink, dry. No rash. R groin site c/d/i.
[2024-08-19] MEDS: COZAAR 25 MG PO (08:38)
[2024-08-19] MEDS: LIPITOR 40 MG PO (08:38)
[2024-08-19] MEDS: HEPARIN 5000 UNITS SC ×2 (08:38→20:06)
[2024-08-19] MEDS: ASPIR LOW (ENTERIC COATED) 81 MG PO (08:38)
[2024-08-19] MEDS: LASIX 40 MG PO (08:38)
[2024-08-19] MEDS: KCL 20 MEQ PO (08:38)
[2024-08-19] MEDS: PLAVIX 75 MG PO (08:38)
--- NOTE | 2024-08-19 15:44 | W.PN.HOSP.TC ---
Today's Communication/Plan
-
Transition to oral diuretic
Losartan
Monitor BP
Increase activity
Assessment / Plan
Assessment / Plan
Impression:
Presentation with shortness of breath and PND.
Acute CHF severely reduced EF.
Suspected atrial tachycardia.
Non-[place] troponin elevation.
Other conditions:
CAD with history of PCI 04/2021.
Mild aortic stenosis
Essential hypertension
Dyslipidemia.
Known LBBB since 2023.
PAD/left carotid artery stenosis.
Plan:
Acute CHF reduced EF.
Echocardiogram on 08/17 with now severely reduced EF at 15% and dilated left ventricle which is new from most recent echo 03/19 at that time EF 55%.
Plan is for ischemic evaluation left/right cardiac cath planned on 08/18.
Transition to oral Lasix.
Consider spironolactone
Continue losartan
Consider to reintroduce beta-roxanne if blood pressure allows
CAD with prior PCI
Non-VT troponin elevation
On 08/18:
1. Significant [place] coronary artery disease.
2. Occluded saphenous vein graft to diagonal branch.
3. Widely patent CONN graft to LAD.
4. Mildly elevated right and left-sided filling pressures with reduced cardiac output with mildly elevated systemic vascular resistance
Continue to optimize medical therapy
Continue Plavix and aspirin.
Continue statin
Attempt to reinstate beta-roxanne if blood pressure allows
Outpatient follow-up with cardiology. Follow-up echo with consideration of AICD placement if EF remains low.
Anticipated Discharge: Within 24 hours
Subjective/Interval History
-
Date of Service: August 19, 2024
Objective Data
-
Labs:
Laboratory Results
08/19/24
04:09
WBC 5.3
Hgb 11.8 L
Hct 34.1 L
Plt Count 180
Sodium 134 L
Potassium 3.5
Chloride 95 L
Carbon Dioxide 28
BUN 24 H
Creatinine 1.0
Glucose 88
Calcium 8.5
Vital Signs:
Vital Signs
Temp Pulse Resp BP Pulse Ox
97.7 F 87 20 97/62 99
08/19/24 14:49 08/19/24 14:45 08/19/24 14:49 08/19/24 14:45 08/19/24 14:49
I&O
08/18/24 08/19/24 08/20/24
06:59 06:59 06:59
Intake Total 980 / 980
Output Total 600 / 600 2024
Balance -600 / -600 -1045 / -1045
Physical Exam
-
General: Well Developed and No Apparent Distress
HEENT: Normocephalic, Atraumatic and Moist Mucous Membranes
Respiratory: Clear to Auscultation
Cardiac: Regular Rhythm and S1/S2; Negative Murmur, Rub or Gallop
GI: Soft, Nontender, Nondistended and Normal Bowel Sounds; Negative Organomegaly
Rectal: Deferred by Provider
Musculoskeletal: No Clubbing, No Cyanosis and No Edema
Skin: Negative Rash
Neuro: Nonfocal/Grossly Intact
--- NOTE | 2024-08-19 15:56 | CM ---
Met w/ both patient and sister to review estimated cost of both Farxiga and Jardiance.
Will provide coupon for free 30 d supply to patient at time of DC.
Will follow.
--- NOTE | 2024-08-19 17:10 | PTCARENOTE ---
BP 83/53- JAVIER Alberto made aware, no new orders at present. Pt states he was lightheaded in BR, but feels better sitting in the chair. Pt instructed to call for assistance to the BR for safety reasons. at bedside and call blum in reach.
--- NOTE | 2024-08-20 01:22 | PTCARENOTE ---
Assumed care of the pt @ 1900 Pt is AAOx3 SR with BBB on the monitor vss denies cp. Discussed poc with pt verbalized understanding. Call blum within reach.
[2024-08-20 03:33] VITALS: BP 105/67
[2024-08-20 03:38] VITALS: BMI 27.7
[2024-08-20 04:10] LABS: Lactic Acid 1.8 mmol/L (0.7-2.0)
[2024-08-20 07:51] VITALS: BP 95/60
--- NOTE | 2024-08-20 08:15 | W.PN.CARDCBS ---
Today's Communication / Plan
-
Start Far
Replete K, check f/u BMP
Follow-up with primary residential glazier, Dr. Lawson has been arranged
Impression / Plan
-
Primary Coding Compliance Auditor: Dr. Rd Lawson
Impression:
Presentation with SOB
Acute HFrEF
Suspected atrial tachycardia
Elevated troponin
CAD
history of CABG 1997
history of PCI 2000, with PCI x3 SVG to diag 07/2016, PCI SVG to diag 2021
s/p cath 08/18/2024 with occluded SVG to diag
mild
Hypercholesterolemia
HTN
Left bundle branch block, not present in 2023
Left carotid artery stenosis
ECHO 03/18/22: EF 55%, mild mid to apical anteroseptal hypokinesis, mild MAC, mild to moderate with mild to moderate AR with peak/mean gradients 30/17 mmHg, mild TR, PAP 17 mmHg
Echo 08/17/2024: EF 10 to 15%, global hypokinesis with regional wall motion abnormalities in mid to distal anterior wall, apex, apical inferior wall, septum, moderate LA dilation, mild to moderate MR, moderate to severe with mean gradient 11 mmHg
but may be underestimated due to severe LV dysfunction, mild to moderate AI, mild TR, PAP 48 mmHg
Cardiac cath 08/18/2024: RA 6, PA 37/17, PCWP 17, CO/CI 3.53/1.69. occluded SVG-diag branch, patent CONN-LAD
Plan:
-he presented with SOB and acute CHF.
-echo showed new reduction in EF to 10-15%
-peak trop 0.269 with history of CAD/CABG/PCI. underwent cath 08/18/2024 with occluded SVG to diag and severe big sandy vessel CAD. did not receive intervention.
-also noted to have LVEDP of 29 and CI 1.7. weight trended down 7 lbs with IV diuresis, transitioned to oral Lasix 08/19/2024, wt up 3 lbs overnight to 198 lbs. Was not on diuretic prior to admission. Cr stable at 1.
-denies SOB, slept well, not requiring O2
-CHF education
-in SR with chronic LBBB and occasional PVCs and several brief runs of atach. t/c eventual low dose BB prior to DC.
-Telemetry personally reviewed, normal sinus rhythm 70s to 90s. Had 3 beat NSVT
-GDMT of CM and CHF as BP allows. of note, he does have history of orthostasis. Currently on cozaar 25 mg daily. BPs remain lower ranging 85/53-120/71. Denies LH/dizzy.
-Farxiga/Jardiance was priced out. Annual deductible $590. First month cost would be $467, then $117 monthly afterwards. Patient agrees to this kelley. Will start Farxiga 10 mg daily- I ordered
-Potassium was 3.5 yesterday, will replete with 20 mEq KCl today-I ordered
- Recheck BMP prior to discharge
-continue asa, plavix, lipitor
-repeat echo in outpatient setting, t/c ICD if LVEF remains <35%.
--may need one more day to observe vol status, try to initiate beta roxanne
-outpt cardiac rehab
- Has follow-up arranged with SULLY Andrea at Dr. Lawson's office for 08/27/2024 at 9 AM
Progress Note - Coding Compliance Auditor
Subjective
Date of Service: August 20, 2024
Denies shortness of breath, chest pain.
Weight up 3 pounds overnight status post change to oral diuretic
Objective
Labs:
08/19/24 04:09
08/19/24 04:09
Labs
Hgb 11.8 g/dL (13.0-18.0) L 08/19/24 04:09
Hct 34.1 % (39.0-52.0) L 08/19/24 04:09
Plt Count 180 10^3/uL (130-400) 08/19/24 04:09
Sodium 134 mmol/L (135-145) L 08/19/24 04:09
Potassium 3.5 mmol/L (3.5-5.1) 08/19/24 04:09
BUN 24 mg/dl (9-20) H 08/19/24 04:09
Creatinine 1.0 mg/dL (0.7-1.3) 08/19/24 04:09
Glucose 88 mg/dl (70-99) 08/19/24 04:09
Troponins
08/17/24 08/17/24
09:00 22:15
Troponin I 0.255 H* Cancelled
Vital Signs and I&O:
Vital Signs
Temp Pulse Resp BP Pulse Ox
98.0 F 90 16 105/67 99
08/20/24 03:34 08/20/24 03:34 08/20/24 03:34 08/20/24 03:33 08/20/24 03:34
Vital Signs
Temp Pulse Resp BP Pulse Ox
98.0 F 90 16 105/67 99
08/20/24 03:34 08/20/24 03:34 08/20/24 03:34 08/20/24 03:33 08/20/24 03:34
Intake & Output
08/18/24 08/19/24 08/20/24 08/21/24
06:59 06:59 06:59 06:59
Intake Total 980 / 980 600 / 600
Output Total 600 / 600 2024 / 2024 1250 / 1250
Balance -600 / -600 -1045 / -1045 -650 / -650
Physical Exam
Physical Exam
GEN: No distress, awake, Ox3
HEENT: supple, anicteric, mmm
LUNGS: Crackles right base, no wheezes/rales
CV: Reg, S1/S2, 1/6 syst LSB, no murmur
ABD: soft, BS+, NT/ND
EXT: No edema
NEURO: Gross non-focal
SKIN: No rash
[2024-08-20] MEDS: HEPARIN 5000 UNITS SC (08:37)
[2024-08-20] MEDS: PLAVIX 75 MG PO (08:37)
[2024-08-20] MEDS: COZAAR 25 MG PO (08:37)
[2024-08-20] MEDS: LIPITOR 40 MG PO (08:37)
[2024-08-20] MEDS: ASPIR LOW (ENTERIC COATED) 81 MG PO (08:37)
[2024-08-20] MEDS: KCL 20 MEQ PO (10:22)
[2024-08-20] MEDS: FARXIGA 10 MG PO (10:22)
[2024-08-20 10:25] LABS: Blood Urea Nitrogen 16 mg/dl (9-20); Calcium 8.8 mg/dl (8.4-10.2); Carbon Dioxide 29 mmol/L (22-30); Chloride 94 mmol/L (98-107); Estimated Creatinine Clearance 86 ml/min; Glucose 143 mg/dl (70-99); Potassium 3.5 mmol/L (3.5-5.1); Sodium 135 mmol/L (135-145); eGFR > 60.00
[2024-08-20 10:29] LABS: NT-proBNP 2320 pg/ml
--- NOTE | 2024-08-20 10:33 | PTCARENOTE ---
received patient this am, flat affect, monitor shows NSR, VSS. left radial dsg. D/I, distal pulse palpable. right groin dsg. intact, distal pulses weak but palpable. patient supplemented with KCL po and Farxiga as ordered.
--- NOTE | 2024-08-20 10:52 | W.DS.TRANS ---
DC Summary - Feed Research Aide
-
Discharge Instructions:
Sleep Apnea Risk High
Discharge Diagnosis/Procedures NSTEMI, Cardiac cath, CHF
Diet Low Cholesterol,2 Gram Sodium,Restrict fluids to
64 oz
Driving Restrictions No driving for 24 hours
Blood Work BMP in 1 week
Specialty Instructions Weigh Daily
Instructions: *[facility] Heart Failure Instructions
Stand-Alone Forms: DC Instructions- Cath/EP Lab
Changes to Home Medications: Yes
Discharge Medications:
DC Medications w/original date entered in [employer]
aspirin 81 mg tablet,delayed release 40.5 mg PO DAILY 08/16/24
atorvastatin 40 mg tablet (Lipitor) 40 mg PO DAILY 08/16/24
clopidogrel 75 mg tablet (Plavix) 75 mg PO DAILY 08/16/24
dapagliflozin propanediol 10 mg tablet 10 mg PO DAILY #30 tabs 08/20/24
furosemide 40 mg tablet 40 mg PO DAILY #30 tabs 08/20/24
losartan 25 mg tablet 25 mg PO DAILY #30 tabs 08/20/24
Home Medication Changes
Losartan, Lasix, Farxiga initiated.
Pending Results: No
[2024-08-20 11:19] VITALS: BP 99/62
--- NOTE | 2024-08-20 12:25 | CM ---
Addendum entered by JALEN Scott 08/20/24 12:43:
[facility] able to accept
Original Note:
CM following for DC planning needs.
Met w/ patient at bedside. Pt. anticipating DC today.
Reviewed coupon for Farxiga-placed in chart.
Offered VN again; patient would agree. Referral made to [facility], awaiting response.
Goal is for home w/ [facility], if accepted.
--- NOTE | 2024-08-20 13:17 | PN.CDI ---
CDI
- -
CDI:
Physician Documentation Request
Admit Date: 08/16/24 18:09
Dear Doctor Maida,
Patient admitted for heart failure
H&P states 'Nonischemic myocardial injury versus NSTEMI'
08/19 progress note states 'Non-SC troponin elevation'
Per cardiology note 'underwent cath 08/18 with occluded SVG to diag and severe lummi vessel CAD. did not receive intervention.'
Laboratory Tests
08/16/24 08/16/24 08/17/24
15:06 20:11 02:35
Troponin I 0.170 H* 0.204 H* 0.269 H* D
08/17/24
09:00
Troponin I 0.255 H*
After study, please clarify the etiology of the elevated troponin:
Nonischemic myocardial injury
NSTEMI
non-mi trop elevation
Other
Use of terms such as suspected, likely, concern for, or probable (associated with a specific diagnosis that is being evaluated, monitored, or treated as if it exists) are acceptable and can be coded in the inpatient setting, when documented at the
time of discharge.
Thank you,
Tiffanie Wilkinson RN, BSN
CDI Specialist
tiger text
Please use your independent medical judgment in providing your response.
--- NOTE | 2024-08-20 13:24 | PN.CDI ---
Addendum entered and electronically signed by Bandar Bey MD 08/24/24 14:39:
I could not find any documented hypoxia over this admission. Patient has been on room air with no evidence of distress.
Original Note:
CDI
- -
CDI:
Physician Documentation Request
Admit Date: 08/16/24 18:09
Dear Doctor Maida,
Patient presented to ED with complaint of increasing CONNORS.
Admitted for management of heart failure.
Patient noted to use 5 L of oxygen on 08/16
Please clarify which of the following accurately represents the patient's respiratory status with 5 L oxygen use:
Acute respiratory failure - please indicate type
Hypoxia
Other
Additional information for Respiratory Failure:
Recognized criteria for Respiratory Failure (Source: [facility] Hospitalist Feb 2013)
ABGs: (1 or more) Symptoms Please indicate type if known
1. p)2 <60 or RA SPO2 <91% on RA 1. Tachypnea, SOB, dyspnea Hypoxic
2. pCO2 50 and pH <7.35 2. Use of accessory muscles Hypercapnic
3. pO2 decrease of pCO2 increase by 3. Pallor or cyanosis Hypoxic and Hypercapnic
10 mmHg from baseline if known 4. Anxiety or restlessness Unable to determine
5. Unable to speak in full sentences
Supplemental O2 of > 40% (5LPM) Intubation is not required
Use of terms such as suspected, likely, concern for, or probable (associated with a specific diagnosis that is being evaluated, monitored, or treated as if it exists) are acceptable and can be coded in the inpatient setting, when documented at the
time of discharge.
Thank you,
Tiffanie Wilkinson RN, BSN
CDI Specialist
tiger text
Please use your independent medical judgment in providing your response.
--- NOTE | 2024-08-20 15:13 | PTCARENOTE ---
D/C instructions given to patient and sister, both verbalizes understanding. INT D/C'd, telemetry D/C'd, personal belongings packed and sent home with patient. D/C to home via wc accompanied by vol. services.
[2024-08-20 15:19] VITALS: BP 95/58
--- NOTE | 2024-08-23 13:02 | W.HF.CON ---
Heart Failure
- LV Function
Left ventricular function study result: LV Ejection fraction </= 35%
Ejection Fraction Percentage: 10-15
- ARNI
Patient already on ARNI: No
Heart Failure ARNI Contraindication: Hypotension, Mod/Severe Aortic Stenosis
- ACEI/ARB
Patient already on ACEI/ARB: Yes
- Beta Conrado
Patient already on Evidence Based Beta Conrado: No
Heart Failure Evidence Based Beta Conrado: Hypotension, Mod/Severe Heart Failure
- Mineralocorticord Receptor Antagonist
Patient already on MRA: No
Heart Failure MRA Contraindication: Hypotension
- SGLT-2 Inhibitor
Patient already on SGLT-2 Inhibitor: Yes
- NYHA CHF Classification
NYHA CHF Classification Level: Class III - Symptoms w/ min exertion, interferes w/ nml daily activity (mod/sev )
- ACC/AHA Stage
ACC/AHA Stage: Stage C: Symptomatic Heart Failure
== END 2024-08-20 15:54 | disposition home health service (06) | DRG 286 ==
LOC: IVU 18:09
PROVIDERS: Emergency Medicine; Internal Medicine Interventional Cardiology; Nurse Practitioner; Nurse Practitioner Adult Health; Nurse Practitioner Gerontology; ADMITTING PHYSICIAN Hospitalist; ATTENDING PHYSICIAN Internal Medicine; CONSULT PHYSICIAN Internal Medicine Cardiovascular Disease; EMERGENCY PHYSICIAN Emergency Medicine; PRIMARYCARE PHYSICIAN Internal Medicine
PROC: 4A023N8 Measurement of Cardiac Sampling and Pressure, Bilateral, Percutaneous Approach (ICD-10-PCS; 2024-08-18)
PROC: B2111ZZ Fluoroscopy of Multiple Coronary Arteries using Low Osmolar Contrast (ICD-10-PCS; 2024-08-18)
PROC: B2161ZZ Fluoroscopy of Right and Left Heart using Low Osmolar Contrast (ICD-10-PCS; 2024-08-18)
DX: I11.0 Hypertensive heart disease with heart failure (principal); I50.21 Acute systolic (congestive) heart failure; I47.19 Other supraventricular tachycardia; I5A Non-ischemic myocardial injury (non-traumatic); Z79.02 Long term (current) use of antithrombotics/antiplatelets; Z79.82 Long term (current) use of aspirin; Z79.899 Other long term (current) drug therapy; I25.10 Atherosclerotic heart disease of native coronary artery without angina pectoris; I95.9 Hypotension, unspecified
CPT/HCPCS: 71046; 80048; 80053; 83605; 83735; 83880; 84484; 85025; 85027; 93005; 93306; 93461; 96374; 99152; 99153; 99285; C1760; C1894; Q9950; Q9967

== ENCOUNTER 2024-09-10 19:58 | Inpatient (IN) | payer MEDICARE, SELFPAY ==
[2024-09-10] VITALS (33 sets, daily range): BP systolic 42–127; BP diastolic 18–113; BMI 28.4
--- NOTE | 2024-09-10 15:22 | ED.GENMED ---
Addendum entered and electronically signed by Callie Abraham MD 09/10/24 20:25:
nursing called to bedside as patient with acute change. He started to complain of shortness of breath and was diaphoretic. During my evaluation patient denied any chest pain. He was saying that he was short of breath and felt as if he had to have
a bowel movement. He was diaphoretic.. His heart rate did convert to normal sinus rhythm in the 80s with occasional sinus pauses and then he would have PVCs but no obvious runs of V. tach. He did drop his blood pressure to the 80s again with MAP
greater than 65. Repeat on examination with crackles though similar to prior. He did drop his blood pressure was certainly could be secondary to cardiogenic shock. I did have a goals of care discussion and patient is a full code.
Rapid was also called as patient was admitted. Repeat EKG was similar to prior. Pads were placed on patient. Hospitalist at bedside. Discussed with on-call cardiology who recommended discussing with interventional given cardiogenic shock. Will
start amiodarone and transfer patient to ICU. While we were evaluating patient patient did go back into his atrial tachycardia and his blood pressure did improve. Levophed was not initiated. Repeat troponin sent as well as lactate.
Critical care statement: A total of 35 minutes of critical care time was provided for this patient. This includes management of unstable vital signs, evaluation of the patient at bedside, reviewing the patient's pertinent medical records, ordering
and reviewing studies, arranging urgent treatment with development of a management plan, evaluating patient's response to treatment, frequent reassessment, and discussion with consultants. This time was separate from time utilized to perform the
aforementioned documented procedures.
Original Note:
History of Present Illness
General
Chief Complaint: Heart Rate Problem
Time Seen by Provider: 09/10/24 15:04
History of Present Illness
History of Present Illness:
Patient is a 74-year-old male with history of CHF with a LifeVest, left bundle branch block, CAD, hypertension presenting to the emergency department with nausea chest pain shortness of breath. He states that he woke up today nauseous. He had a
decreased appetite this whole week. He has been extremely short of breath with chest pain for the past few days. He states that the shortness of breath and chest pain is all the time but worse with exertion. He has also had a cough. He is also
noticed a slight weight gain. He is compliant with his medications. No diarrhea. No vomiting. No sick contacts. Per chart review it appears that patient was discharged on August 20 after he was admitted for heart failure exacerbation and during
that admission he had a cardiac cath that did show some occlusion but no intervention. During that admission he did have runs of atrial tachycardia but beta-blockers were not able to be started given low blood pressures.
Past History
Past History
ED Past Medical History: CAD and Hypercholesterolemia
ED Past Surgical History: Cardiac (Bypass 1995)
Social History
Tobacco: Non-smoker
Phy Exam
Physical Exam
Physical Exam:
GENERAL: in no acute distress
HEENT: normocephalic, extraocular movements intact, dry oral mucosa
NECK: normal inspection
RESPIRATORY: no respiratory distress, crackles at bases
CARDIOVASCULAR: regular rate and rhythm
ABDOMEN/: soft, non-distended, non-tender to palpation, no rebound or guarding
EXTREMITIES: non-tender, mild edema bilaterally
NEUROLOGIC: awake and alert, moves all extremities
SKIN: warm
Course
Orders/Labs/Results
Orders:
Orders
09/10/24 14:40
Electrocardiogram (*1) Urgent
Reason for Study: Tachycardia
EKG- Treatment ONCE
09/10/24 15:05
CR Chest - 2 Views Urgent
Comment:
Reason For Exam: sob
09/10/24 15:08
COVID-19 Antigen Urgent
Source: Nasal Swab
Complete Blood Count/With Diff Urgent
Comprehensive Metabolic Panel Urgent
Magnesium Urgent
Influenza A+B Rapid Molecular Urgent
MOIZ Source: Nasal Swab
Specimen Description:
09/10/24 15:09
NT-proBNP Urgent
Troponin I Urgent
09/10/24 15:16
0.9% Sodium Chloride 250 ml [Nss] 250 ml IV BOLUS
09/10/24 16:08
CT Chest PE Study Urgent
Comment:
Reason For Exam: abnormal cr, elevated trop bnp
09/10/24 16:09
EKG- Treatment ONCE
09/10/24 18:00
Electrocardiogram (*1) Urgent
Reason for Study: Palpitations
09/10/24 18:13
Troponin I Urgent
09/10/24 19:07
Azithromycin 500 mg/250 ml [Zithromax Infusion] 500 mg in 250 ml IV NOW
CefTRIAXone [Rocephin] 1,000 mg IV NOW STA
Abnormal Lab Results
09/10/24 09/10/24 09/10/24
15:08 15:09 18:13
RBC 3.73 L 10^6/uL
(4.70-6.10)
Hgb 11.1 L g/dL
(13.0-18.0)
Hct 32.4 L %
(39.0-52.0)
MPV 12.3 H fL
(7.4-10.4)
Absolute Lymphs (auto) 0.6 L 10^3/uL
(1.2-3.4)
Neutrophils % 83.3 H %
(42.2-75.2)
Lymphocytes % 10.2 L %
(20.5-51.1)
Sodium 132 L mmol/L
(135-145)
Carbon Dioxide 17 L mmol/L
(22-30)
BUN 34 H mg/dl
(9-20)
Creatinine 1.5 H mg/dL
(0.7-1.3)
Glucose 169 H mg/dl
(70-99)
AST 73 H U/L
(17-59)
ALT 71 H U/L
(0-50)
Troponin I 0.577 H* ng/ml 0.624 H* ng/ml
09/10/24 15:08
09/10/24 15:08
Vital Signs
Initial and Last Documented VS:
Initial Vital Signs
Temp Pulse Resp BP Pulse Ox
97.6 F 129 16 110/81 98
09/10/24 14:37 09/10/24 14:37 09/10/24 14:37 09/10/24 14:37 09/10/24 14:37
Last Documented Vital Signs
Temp Pulse Resp BP Pulse Ox
97.6 F 116 34 92/65 96
09/10/24 14:37 09/10/24 18:45 09/10/24 18:45 09/10/24 18:15 09/10/24 18:45
MDM/Problems Addressed
Differential Diagnosis Includes:
Patient is a 74-year-old male with history of CHF with an EF of 10 to 15%, CAD, hypertension presenting to the emergency department with chest pain shortness of breath nausea and feeling unwell for the past few days. On arrival patient's heart rate
is in the 120s. His BP is in the low 100s. On exam he does have crackles at the bases with mild edema bilaterally. Differential is broad but consists of CHF exacerbation versus viral illness versus pneumonia. His abdomen is soft so less likely to
be an acute abdomen. Considered PE though patient does have exam findings that would suggest otherwise. EKG obtained prior to my evaluation. Per my interpretation it is atrial fibrillation with left bundle branch block and occasional PVCs.
During my evaluation on the monitor patient did have a few paired PVCs. Will check blood work chest x-ray. If chest x-ray with no clear etiology will proceed with CT PE will give small fluid bolus to improve BP. Patient will need admission given
constellation of symptoms.
*Critical Care Note
Total Time (30-74mins, 75-104mins- exclusive of procedures): Not Applicable
Update Note
Update Note:
On reevaluation after fluids patient's heart rate did improve though his blood pressure did decrease. Chest x-ray per my interpretation with right middle lobe opacity though it is similar to prior. Will obtain CT PE to further evaluate especially
given the blood pressure change after the fluids.
Troponin and BNP elevated. Will obtain delta troponin. Patient denies any chest pain currently and his EKG does not show any ischemic changes at this time.
CT PE study negative for PE. There is concern for bilateral pleural effusions that are loculated which accounts for the x-ray findings. However there is some patchy airspace opacities in the left lower lobe which could be edema versus pneumonia.
Patient has been having some cough and some other infectious symptoms so will give antibiotic. Patient's delta troponin is uptrending likely type II [place] as Patient remains chest pain-free. Will hold off on heparin. Patient's blood pressure is
uptrending. Given the labile blood pressures we will hold off on any Lasix at this time. Will discuss with hospitalist for admission.
ED Attending Note
-
Portions of this chart may have been created with voice recognition software.� Occasional wrong word or��sound alike� substitutions may have occurred due to the inherent limitations of voice recognition software.
Discharge Plan
Departure
Patient Disposition: Admit
Date of Disposition: 09/10/24
Time of Disposition: 19:08
Presentation/result/management discussed w/ accepting MD/DO: Hospitalist
Discharge Problem:
Shortness of breath
Prescriptions:
No Action
atorvastatin [Lipitor] 40 mg Tablet
40 mg PO DAILY
clopidogrel [Plavix] 75 mg Tablet
75 mg PO DAILY
aspirin 81 mg Tablet,Delayed Release (Dr/Ec)
81 mg PO DAILY
furosemide 40 mg Tablet
40 mg PO DAILY Qty: 30 0RF
dapagliflozin propanediol 10 mg Tablet
10 mg PO DAILY Qty: 30 0RF
Referrals:
Craig Gambino MD [Family Provider] -
Interventions
Interventions:
*Risk Screen - Suicide Last Done: 09/10/24 14:37
*General Assessment Last Done: 09/10/24 14:37
*Neglect/Abuse Screening Last Done: 09/10/24 14:37
*ED COVID-19 Vaccine History Last Done: 09/10/24 15:15
ED- Cardiac Assessment Last Done: 09/10/24 15:16
ED- Pulmonary Assessment Last Done: 09/10/24 15:16
Discharge Date and Time
Print Language: ALBANIAN
[2024-09-10 15:25] LABS: % Basophils 0.2 % (0-2); % Immature Granulocytes 0.2 % (0-0.5); % Lymphocytes 10.2 % (20.5-51.1); % Monocytes 6.1 % (1.7-9.3); % Neutrophils 83.3 % (42.2-75.2); Absolute Lymphocytes 0.6 10^3/uL (1.2-3.4); Absolute Monocytes 0.4 10^3/uL (0.1-0.6); Absolute Neutrophils 4.9 10^3/uL (1.4-6.5); Hematocrit 32.4 % (39.0-52.0); Hemoglobin 11.1 g/dL (13.0-18.0); Mean Corp Hgb Conc. 34.3 g/dL (33.0-37.0); Mean Corpuscular Hgb 29.8 pg (27.0-31.0); Mean Corpuscular Volume 86.9 fL (80.0-94.0); Mean Platelet Volume 12.3 fL (7.4-10.4); Nucleated Red Blood Cells % 0 % (-); Platelet Count 199 10^3/uL (130-400); Red Blood Cell Count 3.73 10^6/uL (4.70-6.10); Red Cell Dist. Width 13.2 % (11.5-14.5); White Blood Cell Count 5.9 10^3/uL (4.8-10.8)
[2024-09-10] MEDS: NSS 250 IV (15:29)
[2024-09-10 15:41] LABS: AST (SGOT) 73 U/L (17-59); Albumin 4.1 g/dl (3.5-5.0); Alkaline Phosphatase 82 U/L (38-126); Blood Urea Nitrogen 34 mg/dl (9-20); Calcium 9.3 mg/dl (8.4-10.2); Carbon Dioxide 17 mmol/L (22-30); Chloride 101 mmol/L (98-107); Estimated Creatinine Clearance 47 ml/min; Glucose 169 mg/dl (70-99); Magnesium 2.2 mg/dl (1.6-2.3); Potassium 4.6 mmol/L (3.5-5.1); Sodium 132 mmol/L (135-145); Total Bilirubin 1.3 mg/dl (0.2-1.3); Total Protein 6.7 g/dl (6.3-8.2); eGFR 48.55
[2024-09-10 15:45] LABS: COVID-19 Antigen Negative (Negative)
[2024-09-10 15:52] LABS: ALT (SGPT) 71 U/L (0-50)
[2024-09-10 16:04] LABS: NT-proBNP 17900 pg/ml; Troponin I 0.577 ng/ml
[2024-09-10 18:49] LABS: Troponin I 0.624 ng/ml
[2024-09-10] MEDS: ROCEPHIN 1000 MG IV (19:21)
[2024-09-10] MEDS: ZITHROMAX INFUSION 250 IV (19:21)
--- NOTE | 2024-09-10 19:41 | HPS.HSE ---
Addendum entered and electronically signed by Denise Murphy MD 09/10/24 21:56:
Rapid response was called because patient became hypotensive to 90s, tachycardic to 130s and less responsive and diaphoretic. I discussed with cardiology with concern for cardiogenic shock who recommended I reach out to interventional cardiology
for potential mechanical support. Repeat labs and lactic acid ordered. Levophed was about to be started blood pressure spontaneously improved.
Amiodarone drip was recommended. Urgent cardiology consult was requested.
Original Note:
Family Physician
-
Family Physician: Craig Gambino
Chief Complaint
-
shortness of breath
History of Present Illness
74-year-old male past medical history of HFrEF with LifeVest, CAD, left bundle branch block, mild aortic stenosis, hyperlipidemia, hypertension, left carotid artery stenosis, presenting with nausea since yesterday, shortness of breath primarily with
exertion and breathing and cough. He woke up today feeling nauseous. Decreased appetite this whole week. He has also been having chest pressure shortness of breath. Sometimes dizzy.. Shortness of breath and chest pain is worse with exertion.
Also had a cough. He noted slight weight gain a few pounds. He is compliant with his medications. No vomiting or diarrhea. No sick contacts.
He was recently admitted on August 20 for CHF exacerbation. He had cardiac catheterization at that time showing mild CAD without intervention necessary. During the admission he had runs of atrial tachycardia but beta-roxanne could not be started
due to low blood pressure.
Medical History
Past Medical History
Past Medical History: Reports Other (HFrEF with LifeVest, CAD, left bundle branch block, mild aortic stenosis, hyperlipidemia, hypertension, left carotid artery stenosis)
Past Surgical History: Reports None
Social History
Tobacco: Non-smoker
Alcohol: Occasional
Drug: None
Family History
Family History: Not pertinent
Allergies / Home Medications
Allergies reflects when Allergies were last updated in [facility].
Home Medications with original date entered in [facility]
Allergy/Medication List:
Allergies
Allergy/AdvReac Type Severity Reaction Status Date / Time
No Known Allergies Allergy Verified 09/10/24 14:39
Home Medications
aspirin 81 mg tablet,delayed release 81 mg PO DAILY 08/16/24
atorvastatin 40 mg tablet (Lipitor) 40 mg PO DAILY 08/16/24
clopidogrel 75 mg tablet (Plavix) 75 mg PO DAILY 08/16/24
dapagliflozin propanediol 10 mg tablet 10 mg PO DAILY #30 tabs 08/20/24
furosemide 40 mg tablet 40 mg PO DAILY #30 tabs 08/20/24
Review of Systems
-
History Source: Patient
A 12 point ROS was completed and negative except as noted: Yes
Constitutional: Reports No Symptoms
EENT: Reports No Symptoms
Respiratory: Reports See HPI
Cardiac: Reports See HPI
Abdomen/GI: Reports No Symptoms
: Reports No Symptoms
Musculoskeletal: Reports No Symptoms
Skin: Reports No Symptoms
Neurological: Reports No Symptoms
Endocrine: Reports No Symptoms
Hematologic/Lymphatic: Reports No Symptoms
Psych: Reports No Symptoms
Physical Exam
Vital Signs
Vital Signs
Temp Pulse Resp BP Pulse Ox
97.6 F 117 35 102/69 96
09/10/24 14:37 09/10/24 19:15 09/10/24 19:15 09/10/24 19:00 09/10/24 19:15
Physical Exam
General: Well Developed, Well Nourished and No Apparent Distress
HEENT: NormoCephalic, Moist mucous membranes and Atraumatic
Respiratory: Clear
Cardiac: S1/S2, Irregular Rhythm and Tachycardia; No Murmur or Rub
GI: Soft, Non Tender, Non Distended and Normal Bowel Sounds; No Organomegaly
Rectal: Deferred by Provider
Musculoskeletal: No Clubbing, No Cyanosis and No Edema
Skin: No Rash
Neuro: Nonfocal/grossly intact
Laboratory Results
-
09/10/24 15:08
09/10/24 15:08
Laboratory Results
Total Bilirubin 1.3 mg/dl (0.2-1.3) 09/10/24 15:08
AST 73 U/L (17-59) H 09/10/24 15:08
ALT 71 U/L (0-50) H 09/10/24 15:08
Alkaline Phosphatase 82 U/L (38-126) 09/10/24 15:08
Troponin I 0.624 ng/ml H* 09/10/24 18:13
Data Reviewed
-
Lab Data: Labs Reviewed by me
Old Records: Reviewed
Impression/Plan
-
IMPRESSION:
PLAN:
# Acute on chronic HFrEF exacerbation
-Cardiac BNP of 18,000
-Chest x-ray shows mild interstitial pulmonary edema, redemonstration of ovoid opacity in the posterior lateral right hemithorax slightly decreased in size compared to previously
-CT PE showed bilateral pleural effusions, loculated in the bilateral upper hemithoraces right greater than left, loculated pleural fluid on the right extending into major minor fissures, patchy airspace opacity in the left lower lobe and lesser
degree in the left upper lobe likely pulmonary edema less likely pneumonia
- Cannot diurese at this time due to blood pressure 90s, will try to
- Hold dapagliflozin
- Recent echo showed EF of 10 to 15%
# Atrial fibrillation with RVR
-Heart rate 110s to 120s
-Blood pressure initially low 100s and patient was given IV fluids with improvement in heart rate, blood pressure came to 90s
-Hold further IV fluids
-Cardiology consulted
# Nonischemic myocardial injury in the setting of A-fib/hypotension and CHF
# History of CAD status post CABG
- Troponin of 0.577, increased to 0.624.
- Trend troponins
- First EKG showed A-fib with RVR, second EKG shows sinus tachycardia with PVCs, left bundle branch block which is old
- Continue aspirin, Plavix, statin
- Patient developed chest pain or significantly rising troponins may need to start heparin drip
#Possible PNA
-Ceftriaxone, Doxycycline
Mild aortic stenosis
# Acute kidney injury likely cardiorenal
- Continue to monitor
- Will eventually need to diurese when tolerated
# Transaminitis likely due to hepatic venous congestion
- Continue to monitor
Hyperlipidemia
- Continue statin
Essential hypertension
Left carotid artery stenosis
Chronic anemia
- Hemoglobin stable
Full code
DVT prophylaxis�heparin
Cardiac diet
--- NOTE | 2024-09-10 20:02 | RR ---
Addendum entered by Ruth Rangel RN 09/10/24 21:01:
IV zithro. infusion was stopped at 19:50, pt. did not receive entire dose as cannot tolerate IV fluid, LIQUEFACTION SUPERVISOR aware.
Original Note:
A Rapid Response was called on this patient, please see Rapid Response form.
At about 19:50, pt. rang call blum, c/o palpitations. Pt. diaphoretic, hypotensive, and tachycardic. POC glucose obtained, ER Dr. Abraham called to bedside, PROPERTY DISPOSAL MANAGER called, PROPERTY DISPOSAL MANAGER team to bedside, placed 3rd IV via U/S into upper rt. arm. Repeat labs obtained
per verbal orders. Pt. placed on defib. pads, code cart at bedside. Pt. placed in Trendelenburg, became normotensive without further intervention. Pt. level of care upgraded. Amio requested from pharmacy. Report given to ICU, pt. brought upstairs w/
1 ED RN, 1 LIQUEFACTION SUPERVISOR, on monitor, w/ Zoll monitor/pads in place.
[2024-09-10 20:05] LABS: Glucose - Point of Care 149 mg/dl (70-99)
[2024-09-10 20:36] LABS: Lactic Acid 6.5 mmol/L (0.7-2.0)
[2024-09-10 20:42] LABS: Troponin I 0.726 ng/ml
[2024-09-10] MEDS: CORDARONE 518 MG IV (21:27)
--- NOTE | 2024-09-10 21:28 | CON.CAR ---
Consultation
Consultation Request
Date/Time Consultation Requested: 09/10/2024, 1929
Date/Time Consultation Performed: 09/10/2024, 2099
Requesting Provider: Denise Murphy
Performing Provider: Chilango Queen
Reason for Consultation: SOB, HF
Medical History
-
Chief Complaint: SOB
History of Present Illness:
Patient is a 74-year-old male with a past medical history significant for heart failure with reduced ejection fraction, atrial tachycardia, CAD with prior CABG in 1997 with PCI 2000 and PCI in 2021, mild , hypercholesterolemia, hypertension, left
bundle branch block, left carotid artery stenosis who was recently admitted in July 2024 due to heart failure who presents due to worsening shortness of breath, weight gain, lower extremity swelling, and lightheadedness. Additionally, patient has
been reporting cough and mild weight gain. Patient notes decreased appetite overall but persistent weight gain. Patient denies any chest discomfort, near-syncope, syncope, PND, orthopnea, palpitations, or focal weakness. Patient reports adherence
to all medications. On admission, patient noted to have a BNP of 18,000 troponin initially 0.577 increased to 0.624. EKG demonstrates sinus rhythm with PAT versus AFL; occasional PVC versus aberrant conduction. Chest x-ray imaging noted
interstitial pulmonary edema with CT chest showing bilateral pleural effusions patchy airspace opacity left lower lobe. Patient admitted to ICU due to evidence of shock with low blood pressure. Patient started on Levophed by ICU team. Patient
given antibiotics out of concern for possible pneumonia.
Past Medical History
Past Medical History: Other (See HPI)
Past Surgical History: Cardiac
Social History
Tobacco: Non-Smoker
Alcohol: Occasional
Drug: None
Family History
Family History: Reviewed & Not Pertinent
Allergies / Home Medications
Allergy/AdvReac Type Severity Reaction Status Date / Time
No Known Allergies Allergy Verified 09/10/24 14:39
�Medication �Instructions �Recorded �Confirmed �Type
aspirin 81 mg tablet,delayed 81 mg PO DAILY 08/16/24 09/10/24 History
release
atorvastatin 40 mg tablet (Lipitor) 40 mg PO DAILY 08/16/24 09/10/24 History
clopidogrel 75 mg tablet (Plavix) 75 mg PO DAILY 08/16/24 09/10/24 History
dapagliflozin propanediol 10 mg 10 mg PO DAILY #30 tabs 08/20/24 09/10/24 Rx
tablet
furosemide 40 mg tablet 40 mg PO DAILY #30 tabs 08/20/24 09/10/24 Rx
Review of Systems
-
History Source: Patient
All other systems: Negative unless noted
Constitutional: Weight Gain and Fatigue
EENT: No Symptoms
Respiratory: Cough and Trouble Breathing
Cardiac: No Symptoms
Abdomen/GI: No Symptoms
: No Symptoms
Musculoskeletal: Edema
Skin: No Symptoms
Neurological: No Symptoms
Endocrine: No Symptoms
Hematologic/Lymphatic: No Symptoms
Physical Exam
Vital Signs
Temp Pulse Resp BP Pulse Ox
97.6 F 128 37 76/66 97
09/10/24 14:37 09/10/24 20:35 09/10/24 20:35 09/10/24 20:35 09/10/24 20:30
Lab Results
09/10/24 15:08
Troponin I 0.726 ng/ml H* 09/10/24 20:10
Oib-U-Nyxtswvuvte Pept 24446 pg/ml 09/10/24 15:09
Physical exam:
GENERAL: no acute distress, laying flat, nasal cannula
EYE: sclera anicteric
NECK: Supple, no appreciated JVD, no carotid bruit appreciated
ENT: normal nose, moist mucosal membranes
CARDIAC: Tachycardic with ectopy, +S1/S2, 2/6 NANDA; no rubs, or gallops
CHEST/PULMONARY: Normal effort, decreased breath sounds bilaterally
ABDOMEN: Soft, without focal tenderness or distention
NEUROLOGICAL: Alert and oriented x3
SKIN: Cool to touch and dry, no rash; 1�2+ pitting edema bilateral lower extremity
PSYCH: Normal and appropriate interaction.
Impression / Plan
-
Primary high pressure cleaner: Dr. Rd Lawson
Impression:
Acute on chronic heart failure with reduced ejection fraction
Shock likely cardiogenic however cannot rule out infection at this time
Atrial tachycardia
� EKG on admission appears to be sinus with frequent PAT/PACs
CAD with prior intervention
� History of CABG 1997
� History of PCI 2000, PCI x 3 SVG to diagonal 07/2016, PCI SVG to dye 2021
� Status post left heart catheterization 08/18/2024 with occluded SVG to diagonal
Mild
Hypercholesterolemia
Hypertension
Low bundle-branch block
Left carotid artery stenosis
ECHO 03/18/22: EF 55%, mild mid to apical anteroseptal hypokinesis, mild MAC, mild to moderate with mild to moderate AR with peak/mean gradients 30/17 mmHg, mild TR, PAP 17 mmHg
Echo 08/17/2024: EF 10 to 15%, global hypokinesis with regional wall motion abnormalities in mid to distal anterior wall, apex, apical inferior wall, septum, moderate LA dilation, mild to moderate MR, moderate to severe with mean gradient 11 mmHg
but may be underestimated due to severe LV dysfunction, mild to moderate AI, mild TR, PAP 48 mmHg
Cardiac cath 08/18/2024: RA 6, PA 37/17, PCWP 17, CO/CI 3.53/1.69. occluded SVG-diag branch, patent CONN-LAD
Plan:
Patient presenting with acute on chronic heart failure with reduced ejection fraction and concern for shock possibly multifactorial
Patient admitted to the ICU on vasopressor support with Levophed, A-line
Agree with amiodarone to suppress ectopy for now
Monitor on telemetry
BNP roughly 18,000 with mildly elevated troponin likely elevated troponin in the setting of acute on chronic heart failure as patient without reported chest pain. Will therefore benefit from IV diuresis
Hold negative inotropic agents for now
Monitor replete electrolytes
Formal echo
Patient in critical status
Discussed with nursing, ICU LOCAL CITY DRIVER, hospitalist
Data Reviewed
-
EKG: Tracing Personally Visualized and interpreted
Radiology: Report Reviewed by me
CT Scan: Report Reviewed by me
Labs: Labs Reviewed by me
Old Records: Reviewed
[2024-09-10] MEDS: CORDARONE 103 MG IV (21:34)
[2024-09-10] MEDS: FLEXBUMIN 100 IV (21:37)
[2024-09-10] MEDS: SODIUM BICARBONATE 50 MEQ IV (21:38)
[2024-09-10] MEDS: HEPARIN 5000 UNITS SC (21:38)
--- NOTE | 2024-09-10 21:44 | PTCARENOTE ---
Pt. transferred to ICU as ED hold rapid whilst awaiting for IVU bed for further heart failure work up.
Profound hypotension, tachyarrhythmia in 130s, polymorphic pvc noted w. pauses.
Started on amio gtt. w. Bolus, and norepi due to consistent non perfusing beats. EP doc called bedside.
Bedside echo, rule out pericardial effusion, noted reduced EF sub 10%.
Gentle fluid challenge, albumin, and stress dose steroids added.
Eyes rolling back in head, however mentating at this time, transitioned to HHF.
Hypothermic bear hugger placed PO temp 93.
--- NOTE | 2024-09-10 22:11 | W.PN.ANESINT ---
Anesthesia Intubation Note
- Intubation Note
Intubation Note:
Diagnosis: Cardiogenic shock
Blade: Glidescope 4
Tube Size: 8.0
Depth: 24 cm @ lips
Side Taped: Right
Drugs Used: None
Grade View: I
EtCO2 Present: Yes
Atraumatic: Yes
Attempts: 1
Insertion Start and Stop Time: 1004, 1006
SaO2 Pre: 54
SaO2 Post: 96
Glidescope Used: Yes
Other Airway Adjustments: None
Pre-Oxygenated: Pt. ventilated by respiratory therapist prior to arrival
Portable Chest X-Ray: Pending
RSI: Yes
Suctioned: No
Bilateral Breath Sounds Confirmed: Yes
Vent Settings:
Settings per ICU_Attending Physician
--- NOTE | 2024-09-10 23:20 | W.PN.DEATH ---
Pronouncement of
-
Called to see patient to pronounce.
No spontaneous heart tones or respirations noted.
Patient not responsive to verbal stimuli.
Patient is pronounced .
Time of : 22:42
Date of : 09/10/24
Cause of : cardiopulmonary arrest, congestive heart failure
Family Notified: Yes (family called to bedside and present at time of )
--- NOTE | 2024-09-10 23:33 | PTCARENOTE ---
CODE 9 called approx 2199. VTACH arrest chest sheyla started. EP physician, ICU ELAINE at bedside, code times approx 2199- 2241. pt. family was called bedside, after speaking with providers it was deemed to stop resuscitative measures. CPR stopped
2241. Family removed belongings, and were provided information regarding home process.
See code 9 flowsheet/physician reports/ summary for further details.
--- NOTE | 2024-09-10 23:43 | W.PN.UPDATE ---
Update Note
Progress Note Update
09/10/24
2049 Received patient after rapid response was called for hypotension, tachycardia, and diaphroetic. Heart rhythm very irregular with ectopy, multiple PACs underlying afib, heart rate on the monitor 110s however pulses only felt femoral about half
that rate 60-80s. Patient clammy, diaphoretic, cold, pale; +3 pitting edema bilateral lower legs, temp 93, rashida hugger applied. Generalized appearance distressed, patient easily awakens to voice but lethargic overall. Attempted to look for radial
pulse to place [place], was not able to find pulse in either arm to place [place] (even visualize with ultrasound machine). Initiated Levophed gtt for hypotension and perfusion. Confirmed with patient and spoke with him of goals of care, patient would
like to be FULL CODE including intubation and full resuscitation efforts. Reviewed patient status with Dr. Denise Warner, hospitalist, and recommended further consultation with cartridge loader and inside steward/stewardess. Discussed case with Dr. Kee
Bernice, cartridge loader, patient critical in cardiogenic shock recommendations received, agreed with amiodarone gtt and bolus 150cc. Reviewed patient case with Dr. Cristina, inside steward/stewardess, recommendations received to give IVF bolus NSS 500cc over
30-60minutes as patient tolerated, give albumin, agreed with amio gtt/bolus with Levophed gtt for vasopressor support, and start stress dose steroids.
[address] Queen, about faint rub heard upon auscultation with my examination. Ctscan - did not comment on any pericardial effusion (ct scan results: No CT evidence for an acute pulmonary thromboembolism. Bilateral pleural effusions,
loculated in the bilateral upper hemithoraces, right greater than left. Loculated pleural fluid on the right extending into the major and minor fissures accounting for the previous radiographic finding. Interstitial pulmonary edema. Patchy airspace
opacities in the left lower lobe, and to a lesser degree the left upper lobe and right lower lobe may be on the basis of alveolar pulmonary edema versus pneumonia). Dr. Queen did come to bedside, did not appreciate upon examination or on brief
bedside echo. Although note patient does have history of aortic stenosis and decreased EF. Formal echo to be ordered and completed.
2200 Talking to the patient while ultra-sounding radial pulse on the left arm to begin arterial insertion. Patient stopped talking and had abnormal bilateral arm movements and attempted to raise his arms then flopped to the side. Noted Ventricular
fibrillation on the monitor, immediately called CODE 9, CPR was initiated immediately. While placing defibrillating pads on chest and hooking to monitor, rhythm changed to PEA. See code 9 sheet for full resuscitation efforts. Dr. Warner
(hospitalist), Dr. Queen (cartridge loader), Lonnie Medina [facility], and hospitalist Denisse Marley and Daksha Higuera all responded to the code. Due to vascular and complexity of cardiogenic shock, decision was made to place I/O for
additional access during the code. IO was inserted by Bry Monroy RN. Multiple rounds of epinephrine and bicarb given. Multiple rhythm types noted during the code PEA, Vfib, and narrow tachycardia. Patient was shocked multiple times during the
code for Vfib x 11, with amiodarone gtt running with additional boluses of amiodarone given, along with lidocaine boluses and gtt for refractory VFib, magnesium IV and calcium IV.
Family was called by hospitalist OLAMIDE Higuera, and when they came to bedside was updated by Dr. Warner and myself. Patient's sister Jesenia was updated about full resuscitation efforts over 40 minutes, patient was in cardiogenic shock due to
congestive heart failure and then had a fatal arrhythmia which we attempted to break with shocking and medications. Overall prognosis was extremely grim for patient and concern for hypoxemic brain injury and/or edema due to prolonged downtime and
hypoperfusion to the brain overall due to poor cardiac output. At that time during resuscitation efforts with family present at bedside a pulse was briefly obtained with a very bradycardic rhythm and pulse was lost again. It was then patient's
sister Jesenia Simmons made the decision to end further resuscitation efforts. Family offered support and at bedside at time of of the patient. Time of 2242 on 09/10/24.
The nail mill worker was contact for less than 24 hours to hospital, it was deemed not a nail mill worker's case.
--- NOTE | 2024-09-11 19:23 | W.DCSUMMARY ---
Discharge Summary
Discharge Data
Date of Admission: 09/10/24
Date of Discharge: 09/10/24
-
Pending Results: No
Hospital Course
74-year-old male past medical history of HFrEF with LifeVest, CAD, left bundle branch block, mild aortic stenosis, hyperlipidemia, hypertension, left carotid artery stenosis presented to the hospital for acute on chronic HFrEF exacerbation and
atrial fibrillation with RVR. He became hypotensive secondary to cardiogenic shock and was started on amiodarone drip, subsequently developed V-fib cardiac arrest requiring lidocaine drip, CPR with multiple shocks, multiple rounds of norepinephrine
and amiodarone, magnesium and calcium. Patient's sister arrived and decision was made to end further resuscitation efforts. Time of is 2241 on 09/10/2024.
Discharge Plan
-
Patient Disposition:
Date/Time
Date/Time: 09/10/24 22:42
Discharge Date and Time
Discharge Date/Time: 09/10/24 23:38
Print Language: FRENCH
== END 2024-09-10 23:38 | disposition expired | DRG 314 ==
LOC: ICU 19:58
PROVIDERS: Nurse Practitioner Gerontology; ADMITTING PHYSICIAN Hospitalist; CONSULT PHYSICIAN Internal Medicine Cardiovascular Disease; EMERGENCY PHYSICIAN Student in an Organized Health Care Education/Training Program; FAMILY PHYSICIAN Internal Medicine
DX: I5A Non-ischemic myocardial injury (non-traumatic) (principal); I50.23 Acute on chronic systolic (congestive) heart failure; I47.19 Other supraventricular tachycardia; N17.9 Acute kidney failure, unspecified; I46.2 Cardiac arrest due to underlying cardiac condition; I11.0 Hypertensive heart disease with heart failure; I25.10 Atherosclerotic heart disease of native coronary artery without angina pectoris; I44.7 Left bundle-branch block, unspecified; E78.00 Pure hypercholesterolemia, unspecified; D64.9 Anemia, unspecified; I49.01 Ventricular fibrillation; I48.91 Unspecified atrial fibrillation; R57.0 Cardiogenic shock; Z79.02 Long term (current) use of antithrombotics/antiplatelets; Z79.82 Long term (current) use of aspirin; Z79.899 Other long term (current) drug therapy; Z98.61 Coronary angioplasty status
CPT/HCPCS: 71046; 71275; 80053; 82962; 83605; 83735; 83880; 84484; 85025; 87040; 87502; 87811; 93005; 96365; 96375; 99291; P9047; Q9967